=== PATIENT | male | born 1970 | race Caucasian/White ===

== ENCOUNTER 2021-03-09 08:41 | Outpatient (CLI) | payer SELFPAY ==
--- NOTE | 2021-03-09 09:00 | XRR_ITS ---
PROCEDURE INFORMATION: Exam: XR Abdomen Exam date and time: 03/09/2021 9:00 AM Age: 50 years old Clinical indication: Condition or disease; Kidney or ureter condition; Calculus (stone) in ureter; Prior surgery; Surgery type: Hernia, 40% of intestine removed; Patient HX: History--kidney stone follow up; Additional info: Ureterolithiasis TECHNIQUE: Imaging protocol: XR of the abdomen. Views: Frontal supine view of the abdomen. 1 View. COMPARISON: CR XR KUB [id number] 03/07/2019 9:32 AM FINDINGS: Gastrointestinal tract: Normal. No bowel dilation. Vasculature: Multiple phleboliths are present in the pelvis. No calcifications are seen in the projection of the kidney or ureters. There is a calcified gallstone in the right upper quadrant. Bones/joints: Unremarkable. XR/XR KUB [id number] IMPRESSION: 1. Cholelithiasis. 2. No renal calculi are seen.
== END 2021-03-09 08:42 | disposition home or self-care (01) ==
LOC: RAD 08:44
PROVIDERS: PCP Physician Assistant Medical; Visit Provider Urology
DX: N20.1 Calculus of ureter (principal); K80.20 Calculus of gallbladder without cholecystitis without obstruction
CPT/HCPCS: 74018

== ENCOUNTER 2024-05-02 15:14 | Emergency (ER) | payer OTHER, SELFPAY ==
[2024-05-02 16:10] VITALS: BP 166/131; PULSE 111; RESP 17; TEMP 36.7; O2SAT 97; BMI 29.8
--- NOTE | 2024-05-02 17:58 | USR_ITS ---
PROCEDURE INFORMATION: Exam: US Scrotum Exam date and time: 05/02/2024 6:19 PM Age: 53 years old Clinical indication: Patient HX: L groin pain TECHNIQUE: Imaging protocol: Real-time ultrasound of the scrotum and contents with color Doppler and image documentation. COMPARISON: No relevant prior studies available. FINDINGS: Right testicle: Measures 5.1 x 3.2 x 2.4 cm. No mass. Normal color Doppler and arterial waveforms. No torsion. Left testicle: Measures 4.5 x 3 x 2.4 cm. No mass. Normal color Doppler and arterial waveforms. No torsion. Epididymides: Normal. Scrotum/soft tissues: There are small bilateral hydroceles. US/US scrotum [id number] IMPRESSION: There are small bilateral hydroceles.
--- NOTE | 2024-05-02 18:01 | ED_ITS ---
HPI - Male Genitourinary 2 General: Chief complaint: Urogenital-Male Stated complaint: groin pain Time Seen by Provider: 05/02/24 17:07 Source: patient Mode of arrival: ambulatory Limitations: no limitations History of Present Illness: 53-year-old male states he has been havi ng pain in his left groin with some slight testicle pain has been going on for months. He states seem to be worse with movement states his pain is currently a 1 out of 10 he denies any vomiting denies any fevers denies any dysuria. Associated symptoms: Deny dysuria, nausea or vomiting Related Data Home Medications Medication Instructions Recorded Confirmed mecobalamin (vitamin B12) 5,000 mcg PO DAILY 03/09/21 03/09/21 mcg disintegrating tablet Allergies Allergy/AdvReac Type Severity Reaction Status Date / Time No Known Allergies Allergy Unverified 04/18/24 09:29 Review of Systems 2 Const: Denies: fever(s), chills, body aches or change in appetite ENMT: Denies: throat pain or dental pain Card: Denies: chest pain Resp: Denies: dyspnea GI: Denies: abdominal pain, nausea, vomiting or diarrhea : Reports: testicular pain; Denies: dysuria Musc: Denies: neck pain or back pain Skin/Breast: Denies: rash Neuro: Denies: headache(s) PFSH ED 2 PFSH: Medical History Solitary left kidney Atrophic almost no tissue on right Surgical History History of intestinal surgery Family History Grandfather Cancer Social History Smoking and tobacco/nicotine status: unknown if used tobacco/nicotine Alcohol intake: current Substance/Drug Use: current Marital status: Single Current occupational status: employed Physical Exam 2 Const: COMMON NORMALS: no acute distress, patient oriented x3 and healthy appearing HENMT: COMMON NORMALS: normocephalic and atraumatic HEAD & SCALP: n ormocephalic and atraumatic Eye: COMMON NORMALS: conjunctivae normal CONJUNCTIVA: Yes conjunctivae normal Neck/C-Spine: COMMON NORMALS: full ROM and supple Chest: COMMONS NORMALS: normal inspection of the chest Resp: COMMON NORMALS: normal respiratory effort Cardio: COMMON NORMALS: regular rate, regular rhythm and No murmurs present (Cardio) RATE: regular rate RHYTHM: regular rhythm GI: COMMON NORMALS: Normal to inspection, nondistended, normoactive bowel sounds present, Soft to palpation, non-tender and no masses PALPATION: Yes Soft to palpation : OTHER: Tenderness and left groin area no testicle tenderness no severe tenderness on exam no hernia noted Extremity: COMMON NORMALS: normal to inspection and full ROM Neuro: COMMON NORMALS: patient oriented x3, moves all extremities and no focal motor deficits Psych: COMMON NORMALS: mental status grossly normal, Normal thought process present and cooperative THOUGHT PROCESS: Normal thought process present Skin: COMMON NORMALS: no rashes or lesions noted and no wounds GENERAL SKIN EXAM: no rashes or lesions noted Course 2 Vital Signs: Vital signs: Vital Signs Temperature 98.1 F 05/02/24 16:10 Pulse Rate 89 05/02/24 18:17 Respiratory Rate 16 05/02/24 18:17 Blood Pressure 162/119 05/02/24 18:17 Pulse Oximetry 98 05/02/24 18:17 Oxygen Delivery Me thod Room Air 05/02/24 18:17 MDM - Male Medical Decision Making Patient presents here with groin pain is likely muscular in origin exam here is benign ultrasound blood work urinalysis is all normal patient stable for discharge follow-up PCP return if worsening Lab Data 05/02/24 18:07 05/02/24 18:07 Radiology Impressions Scrotum Ultrasound 05/02/24 17:58 IMPRESSION: There are small bilateral hydroceles. Laboratory Results WBC 7.15 10^3/uL (3.29-11.43) 05/02/24 18:07 RBC 4.23 10^6/uL (3.85-5.65) 05/02/24 18:07 Hgb 14.00 g/dL (11.27-16.99) 05/02/24 18:07 Hct 40.3 % (37-53) 05/02/24 18:07 MCV 95.3 fl (82-101) 05/02/24 18:07 MCH 33.1 pg (27-33) H 05/02/24 18:07 MCHC 34.7 g/dL (30-55) 05/02/24 18:07 RDW 13.6 % (12.1-15.1) 05/02/24 18:07 Plt Count 154 10^3/cmm (157-399) L 05/02/24 18:07 MPV 10.1 fL (7.4-10.4) 05/02/24 18:07 Neut % (Auto) 62.0 % 05/02/24 18:07 Lymph % (Auto) 30.3 % 05/02/24 18:07 [place] % (Auto) 4.5 % 05/02/24 18:07 Eos % (Auto) 2.1 % 05/02/24 18:07 Baso % (Auto) 0.8 % 05/02/24 18:07 Neut # (Auto) 4.43 10^3/uL (1.8-7.7) 05/02/24 18:07 Lymph # (Auto) 2.2 10^3/uL (0.8-4.8) 05/02/24 18:07 [place] # (Auto) 0.3 10^3/uL (0.2-0.9) 05/02/24 18:07 Eos # (Auto) 0.2 10^3/uL (0.0-0.8) 05/02/24 18:07 Baso # (Auto) 0.1 10^3/uL (0.0-0.1) 05/02/24 18:07 Nucleated RBC % (auto) 0 % 05/02/24 18:07 Nucleated RBCs # 0.0 /100WBC 05/02/24 18:07 Sodium 142 mmol/L (136-145) 05/02/24 18:07 Potassium 3.0 mmol/L (3.5-5.1) L 05/02/24 18:07 Chloride 103 mmol/L (98-107) 05/02/24 18:07 Carbon Dioxide 25 mmol/L (22-29) 05/02/24 18:07 Anion Gap 17.0 (5-19) 05/02/24 18:07 BUN 19 mg/dL (6-20) 05/02/24 18:07 Creatinine 1.7 mg/dL (0.7-1.2) H 05/02/24 18:07 GFR Calculation 42.4 mL/min (90-130) L 05/02/24 18:07 Glucose 150 mg/dL (65-115) H 05/02/24 18:07 Calculated Osmolality 299 mOsm/kg (285-295) H 05/02/24 18:07 Calcium 8.7 mg/dL (8.5-10.5) 05/02/24 18:07 Total Bilirubin 1.7 mg/dL (0.15-1.2) H 05/02/24 18:07 AST 21 U/L (0-40) 05/02/24 18:07 ALT 18 U/L (0-41) 05/02/24 18:07 Alkaline Phosphatase 42 U/L (40-130) 05/02/24 18:07 Total Protein 6.8 g/dL (6.6-8.7) 05/02/24 18:07 Albumin 4.5 g/dL (3.5-5.2) 05/02/24 18:07 Globulin 2.3 g/dL (1.3-4.6) 05/02/24 18:07 Urine Color Yellow (Yellow) 05/02/24 18:51 Urine Appearance Clear (CLEAR) 05/02/24 18:51 Urine pH 6.0 (5-7) 05/02/24 18:51 Ur Specific [place] 1.023 (1.005-1.030) 05/02/24 18:51 Urine Protein 3+ (Negative) A 05/02/24 18:51 Urine Glucose (UA) Negative (Normal) 05/02/24 18:51 Urine Ketones Negative (Negative) 05/02/24 18:51 Urine Blood Negative (Negative) 05/02/24 18:51 Urine Nitrate Negative (Negative) 05/02/24 18:51 Urine Bilirubin Negative (Negative) 05/02/24 18:51 Urine Urobilinogen 1.0 mg/dL (Negative) 05/02/24 18:51 Ur Leukocyte Esterase Negative (Negative) 05/02/24 18:51 Amorphous Sediment Not Reportable 05/02/24 18:51 All radiology interpretation(s) finalized by discharge Discharge Plan Discharge Patient Disposition: Home Clinical Impression: Left groin pain Condition: Stable Prescriptions: No Action mecobalamin (vitamin B12) 5,000 mcg tablet,disintegrating PO DAILY Rx Instructions: He takes 1/2 tablet daily Discharge Orders: Discharge ED (Routine); Ordered 05/02/24 Ordered By: Nigel Lafleur Discharge Diet: Advance as tolerated Discharge Activity: Resume usual activity Patient Instructions: Groin Pain (ED) Coding Level of Care Code ED Chief Security And Safety Officer for Mirna Lovell
[2024-05-02 18:16] LABS: Basophils # 0.1 10^3/uL (0.0-0.1); Basophils % 0.8 %; Eosinophils # 0.2 10^3/uL (0.0-0.8); Eosinophils % 2.1 %; Hematocrit 40.3 % (37-53); Lymphocytes # 2.2 10^3/uL (0.8-4.8); Lymphocytes % 30.3 %; Mean Corpuscular HGB Conc 34.7 g/dL (30-55); Mean Corpuscular Hemoglobin 33.1 pg (27-33); Mean Corpuscular Volume 95.3 fl (82-101); Mean Platelet Volume 10.1 fL (7.4-10.4); Monocytes # 0.3 10^3/uL (0.2-0.9); Monocytes % 4.5 %; Neutrophils # 4.43 10^3/uL (1.8-7.7); Nucleated Red Blood Cells % 0 %; Platelet Count 154 10^3/cmm (157-399); Red Blood Count 4.23 10^6/uL (3.85-5.65); Red Cell Distribution Width 13.6 % (12.1-15.1); White Blood Count 7.15 10^3/uL (3.29-11.43)
[2024-05-02 18:17] VITALS: BP 162/119; PULSE 89; RESP 16; O2SAT 98
[2024-05-02 18:29] LABS: Alanine Aminotransferase 18 U/L (0-41); Albumin Level 4.5 g/dL (3.5-5.2); Alkaline Phosphatase 42 U/L (40-130); Aspartate Amino Transferase 21 U/L (0-40); Blood Urea Nitrogen 19 mg/dL (6-20); Calcium 8.7 mg/dL (8.5-10.5); Carbon Dioxide 25 mmol/L (22-29); Chloride 103 mmol/L (98-107); Creatinine Clr Calc Pharmacy 61.4658; Globulin 2.3 g/dL (1.3-4.6); Glomerular Filtration Rate 42.4 mL/min (90-130); Glucose 150 mg/dL (65-115); Osmolality Calculated 299 mOsm/kg (285-295); Sodium 142 mmol/L (136-145); Total Bilirubin 1.7 mg/dL (0.15-1.2); Total Protein 6.8 g/dL (6.6-8.7)
[2024-05-02] MEDS: metoprolol tartrate 25 mg Tablet PO (18:49)
[2024-05-02 19:02] LABS: Charge for UA Resulting for Rev
[2024-05-02 19:13] LABS: Bilirubin Urine Negative (Negative); Blood Urine Negative (Negative); Glucose Urine UA Negative (Normal); Ketones Urine Negative (Negative); Leukocyte Esterase Urine Negative (Negative); Nitrate Urine Negative (Negative); Protein Urine 3+ (Negative); Specific Gravity, Urine 1.023 (1.005-1.030); Urine Appearance Clear (CLEAR); Urine Color Yellow (Yellow)
[2024-05-02 19:57] LABS: UA Manual Slide Review YES; UA Slide Review UA Slide Review Perf
[2024-05-02 20:00] VITALS: BP 177/117; PULSE 100; O2SAT 96
[2024-05-02 20:02] LABS: Add Urine Culture? No; Fine Granular Casts Urine 0-4 /lpf; Mucus Urine TRACE /hpf; Squamous Epithelial Cell Urine 0-4 /hpf (0-5); WBC Urine RARE /hpf (0-5)
== END 2024-05-02 20:02 | disposition home or self-care (01) ==
PROVIDERS: Emergency Provider Emergency Medicine
DX: R10.32 Left lower quadrant pain (principal)
CPT/HCPCS: 36415; 76870; 80053; 81003; 81015; 85025; 99284

== ENCOUNTER → 2024-05-23 14:49 | Outpatient (BNVA) | payer OTHER, SELFPAY | PROVIDERS: PCP Family Medicine; Visit Provider Family Medicine | DX: I10 Essential (primary) hypertension (principal); Q60.0 Renal agenesis, unilateral; R79.89 Other specified abnormal findings of blood chemistry; R73.9 Hyperglycemia, unspecified; E87.6 Hypokalemia | CPT/HCPCS: 80048; 82306; 83036 ==

== ENCOUNTER → 2024-05-31 11:16 | Outpatient (BNVA) | payer OTHER, SELFPAY | PROVIDERS: PCP Family Medicine; Visit Provider Family Medicine | DX: I10 Essential (primary) hypertension (principal); R79.89 Other specified abnormal findings of blood chemistry; E87.6 Hypokalemia | CPT/HCPCS: 80048 ==

== ENCOUNTER → 2024-06-06 09:30 | Outpatient (BNVA) | payer OTHER, SELFPAY | PROVIDERS: PCP Family Medicine; Visit Provider Family Medicine | DX: I10 Essential (primary) hypertension (principal); R79.89 Other specified abnormal findings of blood chemistry | CPT/HCPCS: 80048 ==

== ENCOUNTER → 2024-07-08 12:03 | Outpatient (BNVA) | payer OTHER, SELFPAY | PROVIDERS: PCP Family Medicine; Visit Provider Registered Nurse Neonatal Intensive Care | DX: R50.9 Fever, unspecified (principal) | CPT/HCPCS: 87880 ==

== ENCOUNTER 2024-07-18 09:07 | Inpatient (IN) | payer OTHER, SELFPAY ==
[2024-07-18] VITALS (36 sets, daily range): BP systolic 77–129; BP diastolic 50–72; PULSE 63–121; RESP 13–36; TEMP 36.5–37.1; O2SAT 96–100; BMI 31.1
--- NOTE | 2024-07-18 09:21 | CT_ITS ---
WS: [id number] CT ABDOMEN PELVIS TECHNIQUE: Noncontrast CT of the abdomen and pelvis with coronal and sagittal reformatted images. CLINICAL INFORMATION: rectal bleeding COMPARISON: CT 2017 DLP: 830.[address] scans at [facility] use at least one of these dose optimization techniques: automated e xposure control; mA and/or kV adjustment per patient size (includes targeted exams where dose is matc hed to clinical indication); or iterative reconstruction. FINDINGS: Large laminated gallstone in the gallbladder measuring 3.1 cm. Gallbladder is contracted. No perichol ecystic fluid. Small esophageal hiatal hernia. Adrenal glands are normal. Normal caliber abdominal ao rta. Mild aortic calcification. Prior RIGHT nephrectomy. No hydronephrosis in the LEFT kidney. LEFT u reter is decompressed. A few tiny nonobstructing LEFT calyceal tip calculi. Tree-in-bud opacities in the lung bases likely inflammatory. Noncontrast pancreas appears normal. Submucosal fatty infiltration in the sigmoid and rectum nonspecific but can be seen with inflammatory bowel disease. Serpiginous area of increased attenuation in the dorsal RIGHT lateral rectosigmoid russo spicious for blood products and/or calcification. Recommend further evaluation with sigmoidoscopy to exclude underlying mass. Some distention of the rectosigmoid in this area with intraluminal products. No evidence of high-grade small or large bowel obstruction. No free fluid in the abdomen or pelvis. F at-containing LEFT inguinal hernia. CT/CT kidney stone [id number] IMPRESSION: 1. Large laminated gallstone in the gallbladder measuring 3.1 cm gallbladder i s contracted. No pericholecystic fluid. 2. Diffuse fatty wall deposition involving the sigmoid colon and rectum. Small serpiginous area of increased attenuation in the dorsal RIGHT lateral rectosig moid suspicious for blood products. In addition there may be some calcification in this area. Recommend further evaluation with sigmoidoscopy to exclude under lying calcified or ulcerated mass. 3. Prior RIGHT nephrectomy. 4. Tiny nonobstructing LEFT calyceal tip calculi. No hydronephrosis in the LEF T kidney. Notified Nigel Lafleur MD at 07/18/2024 10:42 AM.
--- NOTE | 2024-07-18 09:21 | XR_ITS ---
WS: [id number] Exam: XR chest 1V portable [id number] Date/Time of Exam: 07/18/2024 9:28 AM Reason For Exam: weakness Comparison 10/03/2016. Lungs are fully inflated and clear. Chronic interstitial changes of the lung bases. Normal cardiomedi astinal silhouette. No pleural effusion. Bony structures are intact. XR/XR chest 1V portable [id number] IMPRESSION: 1. No acute cardiopulmonary process.
--- NOTE | 2024-07-18 09:22 | ECG_ITS ---
[facility] Test Date: 2024-07-18 Pat Name: Jazmine William Department: Room: Gender: Male Travel Counselor: : 1970 Requested By: Nigel Lafleur Order Number: [id number] Opal MD: Matias Arias M.D. Measurements Intervals [place] Rate: 100 P: 56 MT: 154 QRS: 34 QRSD: 98 T: -11 QT: 342 QTc: 441 Interpretive Statements SINUS TACHYCARDIA WITH OCCASIONAL SUPRAVENTRICULAR PREMATURE COMPLEXES NONSPECIFIC T-WAVE ABNORMALITY Compared to ECG 10/04/2016 04:49:40 T-wave abnormality now present Sinus rhythm no longer present Electronically Signed On 07-20-2024 10:30:29 DYE AUTOMATION OPERATOR by Matias Arias M.D. [email or web address]
--- NOTE | 2024-07-18 09:29 | ED_ITS ---
HPI - GI Bleed 2 General: Chief complaint: GI Bleed Stated complaint: blood in urine and stools Time Seen by Provider: 07/18/24 09:14 Source: patient Mode of arrival: ambulatory Limitations: no limitations History of Present Illness: 53-year-old male states that he has been having bloody stools over the last week he states it has been bright red at times and also dark. He states that he has had increasing fatigue patient is hypotensive here. He denies any vomiting blood he had some slight abdominal cramping denies any severe pain he states he was diagnosed with COVID 2 weeks ago as well but denies any dyspnea or cough or fever currently Associated symptoms: Denies abdominal pain, chills, fever(s), headache(s), nausea, rash or vomiting Related Data Home Medications Medication Instructions Recorded Confirmed mecobalamin (vitamin B12) 5,000 2,500 mcg PO DAILY 03/09/21 07/18/24 mcg disintegrating tablet amlodipine 10 mg tablet 10 mg PO DAILY 07/18/24 07/18/24 Previous Rx's Medication Instructions Recorded cholecalciferol (vitamin D3) 50 50 mcg PO DAILY #90 caps 05/24/24 mcg (2,000 unit) capsule lisinopril 20 mg tablet 20 mg PO DAILY #90 tabs 06/20/24 metoprolol tartrate 25 mg tablet 25 mg PO BID #180 tabs 06/25/24 potassium chloride 20 mEq 20 meq PO DAILY #90 tabs 07/01/24 tablet,extended release(part/cryst) (Klor-Con M) Allergies Allergy/AdvReac Type Severity Reaction Status Date / Time No Known Allergies Allergy Verified 07/18/24 09:24 Review of Systems 2 Const: Reports: fatigue; Denies: fever(s), chills, body aches or change in appetite Eyes: Denies: blurry vision or eye discomfort ENMT: Denies: throat pain or dental pain Card: Denies: chest pain Resp: Denies: dyspnea GI: Reports: hematochezia; Denies: abdominal pain, nausea, vomiting or diarrhea Musc: Denies: neck pain or back pain Skin/Breast: Denies: rash Neuro: Denies: headache(s) PFSH ED 2 PFSH: Medical History (Updated 07/18/24 @ 11:22 by Nigel Lafleur MD) Chronic kidney disease (CKD) Hypokalemia Abnormal blood creatinine level Hypertension Asymptomatic cholelithiasis History of nephrolithiasis Solitary left kidney Atrophic almost no tissue on right Surgical History (Updated 05/23/24 @ 14:55 by Bisi Flynn MD) Hx of colonoscopy 3.31.17--normal History of ankle surgery Right History of intestinal surgery 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 Physical Exam 2 Const: COMMON NORMALS: patient oriented x3 HENMT: COMMON NORMALS: normocephalic and atraumatic HEAD & SCALP: n ormocephalic and atraumatic Eye: COMMON NORMALS: Equal, round and reactive pupils present and EOMs intact bilaterally PUPIL: Yes Equal, round and reactive pupils present Neck/C-Spine: COMMON NORMALS: full ROM and supple Chest: COMMONS NORMALS: normal inspection of the chest and normal palpation of entire chest wall Resp: COMMON NORMALS: normal respiratory effort, No retractions, No use of accessory muscles and clear to auscultation bilaterally AUSCULTATION: clear to auscultation bilaterally Cardio: COMMON NORMALS: regular rate, regular rhythm and No murmurs present (Cardio) RATE: regular rate RHYTHM: regular rhythm GI: COMMON NORMALS: Normal to inspection, nondistended, normoactive bowel sounds present, Soft to palpation, non-tender and no masses PALPATION: Yes Soft to palpation OTHER: hemoccult positive stool no larges amount of blood Extremity: COMMON NORMALS: normal to inspection and full ROM Neuro: COMMON NORMALS: patient oriented x3, moves all extremities and no focal motor deficits Psych: COMMON NORMALS: mental status grossly normal, Normal thought process present and cooperative THOUGHT PROCESS: Normal thought process present Skin: COMMON NORMALS: no rashes or lesions noted and no wounds GENERAL SKIN EXAM: no rashes or lesions noted Course 2 Vital Signs: Vital signs: Vital Signs Temperature 97.7 F 07/18/24 09:19 Pulse Rate 118 H 07/18/24 11:19 Blood Pressure 103/62 07/18/24 11:19 Pulse Oximetry 100 07/18/24 11:19 Oxygen Delivery Me thod Room Air 07/18/24 10:10 MDM - GI Bleed Medical Decision Making Patient presents with malaise was found to be in renal failure did start him on a bicarb drip he is acidotic as well. Did a rectal exam that showed brown stool was Hemoccult positive no signs of any major bleeding hemoglobin here is normal his lactate is normal. Also consulted nephrology will admit to the ICU Medical Records I reviewed the patient's medical records. Lab Data I reviewed the patient's lab results. 07/18/24 09:26 07/18/24 09:26 Radiology Impressions Abdomen/Pelvis CT 07/18/24 09:21 IMPRESSION: 1. Large laminated gallstone in the gallbladder measuring 3.1 cm gallbladder is contracted. No pericholecystic fluid. 2. Diffuse fatty wall deposition involving the sigmoid colon and rectum. Small serpiginous area of increased attenuation in the dorsal RIGHT lateral rectosigmoid suspicious for blood products. In addition there may be some calcification in this area. Recommend further evaluation with sigmoidoscopy to exclude underlying calcified or ulcerated mass. 3. Prior RIGHT nephrectomy. 4. Tiny nonobstructing LEFT calyceal tip calculi. No hydronephrosis in the LEFT kidney. Notified Nigel Lafleur MD at 07/18/2024 10:42 AM. Chest X-Ray 07/18/24 09:21 IMPRESSION: 1. No acute cardiopulmonary process. Laboratory Results WBC 12.16 10^3/uL (3.29-11.43) H 07/18/24 09:26 RBC 4.23 10^6/uL (3.85-5.65) 07/18/24 09:26 Hgb 13.90 g/dL (11.27-16.99) 07/18/24 09: Hct 42.5 % (37-53) 07/18/24 09: MCV 100.5 fl (82-101) 07/18/24 09: MCH 32.9 pg (27-33) 07/18/24 09: MCHC 32.7 g/dL (30-55) 07/18/24 09: RDW 13.9 % (12.1-15.1) 07/18/24 09: Plt Count 150 10^3/cmm (157-399) L 07/18/24 09: MPV 11.2 fL (7.4-10.4) H 07/18/24 09: Neut % (Auto) 85.5 % 07/18/24 09: Lymph % (Auto) 10.1 % 07/18/24 09: [place] % (Auto) 3.5 % 07/18/24 09: Eos % (Auto) 0.2 % 07/18/24 09: Baso % (Auto) 0.2 % 07/18/24 09: Neut # (Auto) 10.39 10^3/uL (1.8-7.7) H 07/18/24 09: Lymph # (Auto) 1.2 10^3/uL (0.8-4.8) 07/18/24 09: [place] # (Auto) 0.4 10^3/uL (0.2-0.9) 07/18/24 09: Eos # (Auto) 0.0 10^3/uL (0.0-0.8) 07/18/24 09: Baso # (Auto) 0.0 10^3/uL (0.0-0.1) 07/18/24 09: Nucleated RBC % (auto) 0 % 07/18/24 09: Nucleated RBCs # 0.0 /100WBC 07/18/24 09: PT 15.10 SECONDS (12.1-14.9) H 07/18/24 09: INR 1.16 (0.8-1.2) 07/18/24 09: Specimen Type Arterial 07/18/24 10:41 Sample Site Radial, right 07/18/24 10:41 ABG pH 7.03 (7.35-7.45) L* 07/18/24 10:41 ABG pCO2 15.8 mmHg (35-45) L* 07/18/24 10:41 ABG pO2 123.0 mmHg (80.0-100.0) H 07/18/24 10:41 ABG PO2/FiO2 Ratio 585 07/18/24 10:41 ABG HCO3 4.2 mmol/L (22-26) L 07/18/24 10:41 ABG Base Excess -24.8 mmol/L (-2.0-2.0) L 07/18/24 10:41 Scooter Test Pos 07/18/24 10:41 Hematocrit 36.7 % (42-52) L 07/18/24 10:41 O2 Delivery Device Room air 07/18/24 10:41 FiO2 21.0 % 07/18/24 10:41 Horse Farm Manager ID Mary 07/18/24 10:41 Blood Gas Notified Time 1110 07/18/24 10:41 Sodium 139 mmol/L (136-145) 07/18/24 09:26 Potassium 4.5 mmol/L (3.5-5.1) 07/18/24 09:26 Chloride 106 mmol/L (98-107) 07/18/24 09:26 Carbon Dioxide 5 mmol/L (22-29) L* 07/18/24 09:26 Anion Gap 32.5 (5-19) H 07/18/24 09:26 BUN 137 mg/dL (6-20) H* D 07/18/24 09:26 Creatinine 11.8 mg/dL (0.7-1.2) H* 07/18/24 09:26 GFR Calculation 4.5 mL/min (90-130) L 07/18/24 09:26 Glucose 139 mg/dL (65-115) H 07/18/24 09:26 Calculated Osmolality 335 mOsm/kg (285-295) H 07/18/24 09:26 Lactic Acid 1.3 mmol/L (0.5-2.2) 07/18/24 09:26 Calcium 8.4 mg/dL (8.5-10.5) L 07/18/24 09:26 Total Bilirubin 1.0 mg/dL (0.15-1.2) 07/18/24 09:26 AST 8 U/L (0-40) 07/18/24 09:26 ALT 9 U/L (0-41) 07/18/24 09: Alkaline Phosphatase 49 U/L (40-130) 07/18/24 09: Total Protein 7.5 g/dL (6.6-8.7) 07/18/24 09: Albumin 4.4 g/dL (3.5-5.2) 07/18/24 09: Globulin 3.1 g/dL (1.3-4.6) 07/18/24 09: Lipase 384 U/L (13-60) H 07/18/24 09:26 Urine Color Yellow (Yellow) 07/18/24 10:26 Urine Appearance Clear (CLEAR) 07/18/24 10: Urine pH 5.0 (5-7) 07/18/24 10:26 Ur Specific [place] 1.021 (1.005-1.030) 07/18/24 10:26 Urine Protein 2+ (Negative) A 07/18/24 10: Urine Glucose (UA) Negative (Normal) 07/18/24 10:26 Urine Ketones Trace (Negative) 07/18/24 10:26 Urine Blood 2+ (Negative) A 07/18/24 10:26 Urine Nitrate Negative (Negative) 07/18/24 10:26 Urine Bilirubin Negative (Negative) 07/18/24 10:26 Urine Urobilinogen 1.0 mg/dL (Negative) 07/18/24 10:26 Ur Leukocyte Esterase Negative (Negative) 07/18/24 10:26 Urine RBC 11-20 /hpf (0-2) H 07/18/24 10:26 Urine WBC 0-5 /hpf (0-5) 07/18/24 10:26 Ur Squamous Epith Cells 0-5 /hpf (0-5) 07/18/24 10:26 Amorphous Sediment Not Reportable 07/18/24 10:26 Urine Bacteria None seen /hpf (NONE) 07/18/24 10: Hyaline Casts 15.71 /lpf 07/18/24 10:26 Blood Type A Positive 07/18/24 09:34 Rho(D) Type Rh positive 07/18/24 09:34 Antibody Screen Negative 07/18/24 09:34 All radiology interpretation(s) finalized by discharge EKG Data EKG 1: I personally reviewed and interpreted this EKG as follows: EKG interpretation date: 07/18/24 EKG interpretation time: 09:42 Interpretation: sinus tach hr [address] or t wave abnormalities qrs 98 qtc 399 Critical Care Time 2 Critical Care Time: Critical Care Time: Yes Total Critical Care Time: 45 Attestation: The high probability of a clinically significant, sudden or life threatening deterioration of the patient's renal system(s) required my full and direct attention, intervention and personal management. The critical care time is as shown. This time is in addition to time spent performing any reported procedures but includes the following: [x] Data and vital sign review and interpretation [x] Patient assessment, examination and intervention [x] Documentation [x] Medication orders and management Discharge Plan Discharge Patient Disposition: Admitted As Inpatient Clinical Impression: Acute renal failure Condition: Stable Prescriptions: No Action mecobalamin (vitamin B12) 5,000 mcg tablet,disintegrating 2,500 mcg PO DAILY cholecalciferol (vitamin D3) 50 mcg (2,000 unit) capsule 50 mcg PO DAILY Qty: 90 3RF lisinopril 20 mg tablet 20 mg PO DAILY Qty: 90 0RF metoprolol tartrate 25 mg tablet 25 mg PO BID Qty: 180 0RF potassium chloride [Klor-Con M20] 20 mEq tablet,ER particles/crystals 20 meq PO DAILY Qty: 90 0RF amlodipine 10 mg tablet 10 mg PO DAILY Referrals: Bisi Flynn MD [Primary Care Provider] - Coding Level of Care Code ED Community Organization Aide for Chg L[facility]
[2024-07-18] MEDS: sodium chloride 0.9% 1,000 ML 999 ML IV ×2 (09:30→09:44)
[2024-07-18 09:38] LABS: Basophils % 0.2 %; Eosinophils % 0.2 %; Hematocrit 42.5 % (37-53); Lymphocytes # 1.2 10^3/uL (0.8-4.8); Lymphocytes % 10.1 %; Mean Corpuscular HGB Conc 32.7 g/dL (30-55); Mean Corpuscular Hemoglobin 32.9 pg (27-33); Mean Corpuscular Volume 100.5 fl (82-101); Mean Platelet Volume 11.2 fL (7.4-10.4); Monocytes # 0.4 10^3/uL (0.2-0.9); Monocytes % 3.5 %; Neutrophils # 10.39 10^3/uL (1.8-7.7); Neutrophils % 85.5 %; Nucleated Red Blood Cells % 0 %; Platelet Count 150 10^3/cmm (157-399); Red Blood Count 4.23 10^6/uL (3.85-5.65); Red Cell Distribution Width 13.9 % (12.1-15.1); White Blood Count 12.16 10^3/uL (3.29-11.43)
[2024-07-18 09:58] LABS: INR 1.16 (0.8-1.2)
[2024-07-18 09:59] LABS: Lactic Sepsis W/Reflex 1.3 mmol/L (0.5-2.2)
[2024-07-18 10:00] LABS: Alanine Aminotransferase 9 U/L (0-41); Albumin Level 4.4 g/dL (3.5-5.2); Alkaline Phosphatase 49 U/L (40-130); Chloride 106 mmol/L (98-107); Potassium 4.5 mmol/L (3.5-5.1); Sodium 139 mmol/L (136-145)
[2024-07-18 10:13] LABS: Anion Gap 32.5 (5-19); Aspartate Amino Transferase 8 U/L (0-40); Calcium 8.4 mg/dL (8.5-10.5); Globulin 3.1 g/dL (1.3-4.6); Glomerular Filtration Rate 4.5 mL/min (90-130); Glucose 139 mg/dL (65-115); Total Protein 7.5 g/dL (6.6-8.7)
[2024-07-18 10:35] LABS: Bilirubin Urine Negative (Negative); Blood Urine 2+ (Negative); Glucose Urine UA Negative (Normal); Ketones Urine Trace (Negative); Leukocyte Esterase Urine Negative (Negative); Nitrate Urine Negative (Negative); Protein Urine 2+ (Negative); Specific Gravity, Urine 1.021 (1.005-1.030); Urine Appearance Clear (CLEAR); Urine Color Yellow (Yellow)
[2024-07-18 10:36] LABS: Blood Urea Nitrogen 137 mg/dL (6-20); Carbon Dioxide 5 mmol/L (22-29); Osmolality Calculated 335 mOsm/kg (285-295)
[2024-07-18 10:37] LABS: Lipase 384 U/L (13-60)
[2024-07-18 10:38] LABS: Add Urine Microscopic? YES; Bacteria Urine None Seen /hpf; Hyaline Casts Urine 15.71 /lpf; Squamous Epithelial Cell Urine 0-5 /hpf (0-5); WBC Urine 0-5 /hpf (0-5)
[2024-07-18 10:55] LABS: Add Urine Culture? Yes; UA Slide Review UA Slide Review Perf
[2024-07-18 11:11] LABS: Arterial Blood Gas Hematocrit 36.7 % (42-52); Base Excess ABG -24.8 mmol/L (-2.0-2.0); Blood Gas Allen Test Pos; Blood Gas Operator Identificat WALCI; Blood Gas Sample Site Radial, right; Blood Gas Sample Type Arterial; HCO3 ABG 4.2 mmol/L (22-26); Oxygen Device ROOM AIR; PO2 FiO2 Ratio Arterial Blood 585
[2024-07-18 11:15] LABS: ABG PCO2 15.8 mmHg (35-45); ABG PH Result 7.03 (7.35-7.45); Blood Gas CCRB Time 1110
--- NOTE | 2024-07-18 11:38 | P.HP_ITS ---
Documented by User: Mc Arevalo 07/18/24 12:40 Providers/Chief Complaint 2 Admitting Physician: Jim Guzmán MD Primary Care Provider: Bisi Flynn MD Chief Complaint: blood in urine and stools History of Present Illness Jazmine William is a 53 y.o. male with painful bloody stools and persistent fatigue. The fatigue has been going on for several weeks but the painful bloody stools he noticed more recently. These painful stools have made him increasingly hesitant to eat to avoid the pain of bowel movements. He has dealt with diarrhea since childhood and recalls undergoing surgery during childhood when they removed a portion of his intestine. He reports a recent bout of COVID that he believes has since resolved. He learned in 2017 that he only has one kidney. Denies any recent travel. Review of Systems 2 General: Reports: 10 or more systems reviewed and unremarkable except in HPI and below Const: Reports: fever(s), chills, change in appetite and fatigue Eyes: Reports: change in vision ENMT: Reports: dry mouth; Denies: odynophagia Card: Denies: edema or swelling of feet/ankles Resp: Denies: dyspnea, productive cough or non-productive cough GI: Reports: nausea, diarrhea, pain on defecation, rectal pain and hematochezia; Denies: vomiting : Reports: oliguria Neuro: Denies: Slurred speech present Psych: Reports: anxiety and change in appetite Endo: Reports: tired all the time Medications/Allergies Home Medications Medication Instructions Recorded Confirmed Last Taken Type mecobalamin (vitamin B12) 5,000 2,500 mcg PO DAILY 03/09/21 07/18/24 07/17/24 History mcg disintegrating tablet cholecalciferol (vitamin D3) 50 50 mcg PO DAILY #90 caps 05/24/24 07/18/24 07/17/24 Rx mcg (2,000 unit) capsule lisinopril 20 mg tablet 20 mg PO DAILY #90 tabs 06/20/24 07/18/24 07/17/24 Rx metoprolol tartrate 25 mg tablet 25 mg PO BID #180 tabs 06/25/24 07/18/24 07/17/24 Rx potassium chloride 20 mEq 20 meq PO DAILY #90 tabs 07/01/24 07/18/24 07/17/24 Rx tablet,extended release(part/cryst) (Klor-Con M) amlodipine 10 mg tablet 10 mg PO DAILY 07/18/24 07/18/24 07/17/24 History Allergies Allergy/AdvReac Type Severity Reaction Status Date / Time No Known Allergies Allergy Verified 07/18/24 09:24 PFSH Acute 2 PFSH: Medical History Chronic kidney disease (CKD) Hypokalemia Abnormal blood creatinine level Hypertension Asymptomatic cholelithiasis History of nephrolithiasis Solitary left kidney Atrophic almost no tissue on right Surgical History Hx of colonoscopy 3.31.17--normal History of ankle surgery Right History of intestinal surgery 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 Alert and oriented. HEENT: Normocephalic, atraumatic. Oropharynx clear. Slight rosacea. Cardiovascular: RRR. No murmurs. Respiratory: Clear to auscultation bilaterally. Abdomen: Old surgical scar noted. Soft, nondistended. : Phallus and scrotum grossly normal. Hc catheter in place. Rectum: No visible blood. Diffuse irritation of perirectal skin. Neuro: No obvious focal deficits. Extremities: No cyanosis or edema. 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 male with painful bloody stools and persistent fatigue. The fatigue has been going on for several weeks but the painful bloody stools he noticed more recently. These painful stools have made him increasingly hesitant to eat to avoid the pain of bowel movements. He believes this stemmed for after he had COVID, around the of this month or so. I do not see a positive test, in his record, but there is a positive rapid strep. He has dealt with diarrhea since childhood and recalls undergoing surgery during childhood when they removed a portion of his intestine. He learned in 2017 that he only has one kidney. Denies any recent travel. Reports the blood in his stool, is bright red. He reports some fever at home, but only subjective. He has been anorexic not wanting to eat but is still been drinking some liquids. He had also recently readded multiple blood pressure medicines. I believe that since May 23 he has been initiated on Norvasc, amlodipine and metoprolol. Medications/Allergies Home Medications Medication Instructions Recorded Confirmed Last Taken Type mecobalamin (vitamin B12) 5,000 2,500 mcg PO DAILY 03/09/21 07/18/24 07/17/24 History mcg disintegrating tablet cholecalciferol (vitamin D3) 50 50 mcg PO DAILY #90 caps 05/24/24 07/18/24 07/17/24 Rx mcg (2,000 unit) capsule lisinopril 20 mg tablet 20 mg PO DAILY #90 tabs 06/20/24 07/18/24 07/17/24 Rx metoprolol tartrate 25 mg tablet 25 mg PO BID #180 tabs 06/25/24 07/18/24 07/17/24 Rx potassium chloride 20 mEq 20 meq PO DAILY #90 tabs 07/01/24 07/18/24 07/17/24 Rx tablet,extended release(part/cryst) (Klor-Con M) amlodipine 10 mg tablet 10 mg PO DAILY 07/18/24 07/18/24 07/17/24 History Allergies Allergy/AdvReac Type Severity Reaction Status Date / Time No Known Allergies Allergy Verified 07/18/24 09:24 PFSH Acute 2 PFSH: Medical History Chronic kidney disease (CKD) Hypokalemia Abnormal blood creatinine level Hypertension Asymptomatic cholelithiasis History of nephrolithiasis Solitary left kidney Atrophic almost no tissue on right Surgical History Hx of colonoscopy 3.31.17--normal History of ankle surgery Right History of intestinal surgery 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 Possibly some calcification. Will need endoscopy to review. Only 1 kidney. Small nonobstructive left calyceal calculi left kidney Urine culture has been obtained EKG demonstrates sinus rhythm with occasional premature atrial contraction, normal axis, nonspecific ST-T wave changes. A&P Assessment and plan (1) Acute renal failure: Severe acute renal failure demonstrated by markedly elevated creatinine, pronounced metabolic acidosis, pronounced secondary compensatory respiratory alkalosis. Differential diagnosis is broad. This could include dehydration, hypotension with blood pressure medication, infection, poststreptococcal, HUS Continue IV fluid resuscitation in the form of a bicarbonate drip. Currently getting a bolus, and then will get 125 cc an hour of D5W with 100 mill equivalents of bicarbonate per liter BP is improving significantly, continue to monitor Nephrology consultation Ch in place, has produced clear yellow urine, continue to monitor volume Hold all blood pressure medications, including KAVEH inhibitors Patient denies any history of anti-inflammatory use Avoid renal toxic medication Secondary to past history of positive strep we will do a throat culture, and initiate Zosyn currently. Zosyn is also being used secondary to GI abnormalities. Repeat BMP in 3 hours (2) Acidosis: (3) Hematochezia: Been having stools with visible blood Significant pain with bowel movements Dilaudid PRN for pain Consider colonoscopy, after patient is stabilized Zosyn IV Stool culture, C. difficile toxin (4) Hypotension: Improved with IV fluids Fairly profound on arrival Hold all antihypertensives. (5) History of streptococcal pharyngitis: Plan Mild thrombocytopenia that appears to be chronic Full Code DVT prophylaxis: Unfractionated heparin Protonix for GI prophylaxis Attestations 2 Medical Necessity Statement*: Will need greater than 2 midnight stay for evaluation and treatment of severe acute kidney failure. Critical Care Time: The high probability of a clinically significant, sudden or life threatening deterioration of the patient's [renal, gastrointestinal, vascular] system(s) required my full and direct attention, intervention and personal management. The critical care time is as shown. This time is in addition to time spent performing any reported procedures but includes the following: [x] Data and vital sign review and interpretation [x] Patient assessment, examination and intervention [x] Documentation [x] Medication orders and management Critical Care Time (min): 68 Coding Level of Care Code Critical Care >/= 30 minutes Critical care time (in minutes): 68 The high probability of a clinically significant, sudden or life threatening deterioration, as referenced in this documentation, required my full and direct attention, intervention and personal management. The critical care time shown is in addition to time spent performing any reported separately billable procedures and includes the following: [x] Data and vital sign review and interpretation [x ] Patient assessment, examination and intervention [x] Medication orders and management [x] Patient/Family updates as able [x] Care Coordination and Documentation. Diagnoses Acute renal failure N17.9 Acidosis E87.20 Hematochezia K92.1 Hypotension I95.9 History of streptococcal pharyngitis Z87.09
[2024-07-18] MEDS: cefTRIAXone 1,000 mg SDV 1000 MG IVP (11:44)
--- NOTE | 2024-07-18 12:05 | PC.NURSE ---
BICARB TO RUN AT 200 ML/HR FOR 2 HOURS AND THEN BACK TO 125 ML/HR PER JAEL.
--- NOTE | 2024-07-18 13:36 | PM.CONSULT ---
Providers/Reason For Consult Consulting Physician/Specialty*: kommana/nephrology Reason for Consult*: JOSESITO Attending Physician: Jim Guzmán MD Primary Care Provider: Bisi Flynn MD History of Present Illness History of Present Illness Jazmine Wililam is a 53 year old male patient is a 53-year-old male with past medical history significant for hypertension who presented to the hospital due to blood in the stool generalized weakness and fatigue. Patient reports that he has been weak for the last few weeks was recently tested for COVID about a week ago has nausea and decreased p.o. intake has diarrhea and also noticed blood in the stool. Also reports that he has solitary kidney-congenital. Also has chronic diarrhea which has been worse now. In the emergency department he was noted to be tachycardic, lab data significant for elevated white count of 12,000, severe metabolic acidosis with a bicarbonate of 5 has BUN of 37 and creatinine of 11.8. Review of Systems Narrative: negative Medications/Allergies Home Medications Medication Instructions Recorded Confirmed Last Taken Type mecobalamin (vitamin B12) 5,000 2,500 mcg PO DAILY 03/09/21 07/18/24 07/17/24 History mcg disintegrating tablet cholecalciferol (vitamin D3) 50 50 mcg PO DAILY #90 caps 05/24/24 07/18/24 07/17/24 Rx mcg (2,000 unit) capsule lisinopril 20 mg tablet 20 mg PO DAILY #90 tabs 06/20/24 07/18/24 07/17/24 Rx metoprolol tartrate 25 mg tablet 25 mg PO BID #180 tabs 06/25/24 07/18/24 07/17/24 Rx potassium chloride 20 mEq 20 meq PO DAILY #90 tabs 07/01/24 07/18/24 07/17/24 Rx tablet,extended release(part/cryst) (Klor-Con M) amlodipine 10 mg tablet 10 mg PO DAILY 07/18/24 07/18/24 07/17/24 History Allergies Allergy/AdvReac Type Severity Reaction Status Date / Time No Known Allergies Allergy Verified 07/18/24 09:24 Current Medications Generic Name Dose Route Start Last Admin Trade Name Freq PRN Reason Stop Dose Admin Sodium Bicarbonate 100 meq/ 1,000 mls @ 125 mls/hr 07/18/24 11:00 07/18/24 12:06 Dextrose IV 200 mls/hr .Q8H ROXANN Infusion PFSH Acute PFSH: Medical History Chronic kidney disease (CKD) Hypokalemia Abnormal blood creatinine level Hypertension Asymptomatic cholelithiasis History of nephrolithiasis Solitary left kidney Atrophic almost no tissue on right Surgical History Hx of colonoscopy 3.31.17--normal History of ankle surgery Right History of intestinal surgery 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 Lungs clear per report No pedal edema Urinary Catheter Management: Ch: Cath Placed During This Visit: yes Urinary Catheter Date of Insertion: 07/18/24 Urinary Catheter Time of Insertion: 11:17 Data 07/18/24 09:26 07/18/24 09:26 A&P Assessment and plan (1) Acute renal failure: 1. Acute on chronic kidney disease: Baseline creatinine seems to be in the mid 1 range about a month ago now has severe JOSESITO with severe metabolic acidosis-etiology likely prerenal in the setting of poor intake and possibly developed ATN -Currently on bicarbonate drip, awaiting repeat labs -Monitor labs and urine output closely and if no improvement will require dialysis-was likely temporary HD -Avoid nephrotoxins and IV contrast studies -Patient currently on room air 2. High anion gap metabolic acidosis: Due to diarrhea and JOSESITO, on bicarbonate drip, monitor repeat labs 3. History of hypertension holding meds due to borderline low blood pressures 4. History of GI bleed, 5. Recent streptococcal pharyngitis Consult Attestations Medical Necessity Statement: Per medicine team Coding Level of Care Code Acute Code for [facility] Diagnoses Acute renal failure N17.9
[2024-07-18] MEDS: heparin 5,000 unit/mL INJ 1 mL 5000 UNIT SUBCUT (13:41)
[2024-07-18] MEDS: citric acid-sodium citrate 30 mL UDC 60 ML PO (13:41)
[2024-07-18] MEDS: piperacillin-tazobactam 3.375 GM in sodium chloride 0.9% (plus) 50 ML IV (13:41)
[2024-07-18 15:32] LABS: Anion Gap 27.9 (5-19); Calcium 7.2 mg/dL (8.5-10.5); Chloride 109 mmol/L (98-107); Creatinine Clr Calc Pharmacy 10.6684; Glomerular Filtration Rate 5.5 mL/min (90-130); Glucose 120 mg/dL (65-115); Potassium 3.9 mmol/L (3.5-5.1); Sodium 140 mmol/L (136-145)
[2024-07-18 15:42] LABS: Carbon Dioxide 7 mmol/L (22-29)
[2024-07-18 15:43] LABS: Potassium, Radom Urine 9 mmol/L; Urine Creatinine 318 mg/dL (39-259); Urine Random Chloride 26 mmol/L; Urine Random Sodium 30 mmol/L
[2024-07-18 15:43] LABS: Osmolality Calculated 334 mOsm/kg (285-295)
[2024-07-18 15:44] LABS: Urine Protein Random 52 mg/dL
[2024-07-18 15:44] LABS: Blood Urea Nitrogen 133 mg/dL (6-20)
[2024-07-18 16:19] LABS: C.Diff PCR (Lab) NEGATIVE (Negative)
[2024-07-18 21:12] LABS: Creatinine Clr Calc Pharmacy 12.5511; Glucose 112 mg/dL (65-115); Sodium 144 mmol/L (136-145)
[2024-07-18 21:17] LABS: Anion Gap 25.4 (5-19); Calcium 7.1 mg/dL (8.5-10.5); Chloride 113 mmol/L (98-107); Glomerular Filtration Rate 6.6 mL/min (90-130); Potassium 3.4 mmol/L (3.5-5.1)
[2024-07-18 21:20] LABS: Osmolality Calculated 340 mOsm/kg (285-295)
[2024-07-18 21:21] LABS: Blood Urea Nitrogen 127 mg/dL (6-20); Carbon Dioxide 9 mmol/L (22-29)
[2024-07-19] VITALS (47 sets, daily range): BP systolic 81–130; BP diastolic 52–90; PULSE 78–105; RESP 12–24; TEMP 36.4–37.1; O2SAT 93–100
[2024-07-19] MEDS: heparin 5,000 unit/mL INJ 1 mL 5000 UNIT SUBCUT (00:38)
[2024-07-19] MEDS: piperacillin-tazobactam 3.375 GM in sodium chloride 0.9% (plus) 50 ML IV ×3 (00:38→23:51)
[2024-07-19 03:48] LABS: Basophils % 0.6 %; Eosinophils # 0.1 10^3/uL (0.0-0.8); Eosinophils % 1.2 %; Hematocrit 29.8 % (37-53); Lymphocytes % 21.1 %; Mean Corpuscular HGB Conc 33.6 g/dL (30-55); Mean Corpuscular Hemoglobin 33.3 pg (27-33); Mean Corpuscular Volume 99.3 fl (82-101); Mean Platelet Volume 10.9 fL (7.4-10.4); Monocytes # 0.3 10^3/uL (0.2-0.9); Monocytes % 6.8 %; Neutrophils # 3.41 10^3/uL (1.8-7.7); Neutrophils % 69.9 %; Nucleated Red Blood Cells % 0 %; Platelet Count 91 10^3/cmm (157-399); Red Cell Distribution Width 13.8 % (12.1-15.1); White Blood Count 4.88 10^3/uL (3.29-11.43)
[2024-07-19 04:05] LABS: Alanine Aminotransferase 6 U/L (0-41); Albumin Level 3.4 g/dL (3.5-5.2); Alkaline Phosphatase 35 U/L (40-130); Anion Gap 24.1 (5-19); Aspartate Amino Transferase 8 U/L (0-40); Calcium 6.9 mg/dL (8.5-10.5); Carbon Dioxide 11 mmol/L (22-29); Chloride 113 mmol/L (98-107); Creatinine Clr Calc Pharmacy 13.8551; Globulin 2.3 g/dL (1.3-4.6); Glomerular Filtration Rate 7.4 mL/min (90-130); Glucose 115 mg/dL (65-115); Potassium 3.1 mmol/L (3.5-5.1); Sodium 145 mmol/L (136-145); Total Protein 5.7 g/dL (6.6-8.7)
[2024-07-19 04:32] LABS: Osmolality Calculated 340 mOsm/kg (285-295)
[2024-07-19 04:33] LABS: Blood Urea Nitrogen 123 mg/dL (6-20); Magnesium 0.7 mg/dL (1.7-2.3)
[2024-07-19] MEDS: magnesium sulfate premix 2 GM/50 ML PIGGYBACK IV (04:49)
--- NOTE | 2024-07-19 07:37 | P.PN_ITS ---
Subjective 2 Subjective: no new c/o Medications: Reviewed: Yes Vitals/I&O/Wt Last Vital Signs Temp 98.8 F 07/19/24 04:24 Pulse 87 07/19/24 06:00 Resp 12 07/19/24 06:00 BP 89/54 07/19/24 06:00 Pulse Ox 96 07/19/24 06:00 O2 Del Method Room Air 07/18/24 14:30 07/18/24 07/19/24 07/19/24 22:59 06:59 14:59 Intake Total 1002.083 / 2283.100 1037.5 / 3320.600 Output Total 1750 / 1750 Balance 1002.083 / 2283.100 -712.5 / 1570.600 Weight last 48 hrs Weight 115.893 kg Weight 104.326 kg Physical Exam 2 Narrative: patient is awake alert no distress HEENT S1-S2 regular rate and rhythm. Lungs clear per report No pedal edema Urinary Catheter Management: Ch: Cath Placed During This Visit: yes Reason for Continuing Indwelling Catheter: Accurate Measurement of Urinary Output in Critically Ill Patients Urinary Catheter Date of Insertion: 07/18/24 Urinary Catheter Time of Insertion: 11:17 Data 07/19/24 11:20 07/19/24 03:30 A&P Assessment and plan (1) Acute renal failure: 1. Acute on chronic kidney disease:Has solitary kidney, Baseline creatinine seems to be in the mid 1 range about a month ago now has severe JOSESITO with severe metabolic acidosis-etiology likely prerenal in the setting of poor intake and possibly developed ATN -Currently on bicarbonate drip, improving acidosis and UOP picked up -No hydronephrosis on US -Monitor labs and urine output closely -Avoid nephrotoxins and IV contrast studies -Patient currently on room air 2. High anion gap metabolic acidosis: Due to diarrhea and JOSESITO, on bicarbonate drip, monitor repeat labs 3. History of hypertension holding meds due to borderline low blood pressures 4. History of GI bleed, 5. Recent streptococcal pharyngitis Attestations 2 Medical Necessity Statement*: per satnam Coding Level of Care Code Acute Code for g Fwd Diagnoses Acute renal failure N17.9
[2024-07-19 08:53] LABS: LAB Peripheral Smear Sent for Review
[2024-07-19] MEDS: pantoprazole 40 mg SDV IVP (09:09)
[2024-07-19 11:31] LABS: Hematocrit 28.6 % (37-53)
[2024-07-19] MEDS: sucralfate 1 gm/10 mL Oral Liq UDC PO (11:40)
[2024-07-19 11:51] LABS: Magnesium 1.2 mg/dL (1.7-2.3)
--- NOTE | 2024-07-19 13:53 | P.PN_ITS ---
Subjective 2 Subjective: Today he is feeling slightly better. Had some blood-tinged secretions on blowing his nose. Vitals/I&O/Wt Last Vital Signs Temp 97.5 F L 07/19/24 12:30 Pulse 88 07/19/24 13:30 Resp 17 07/19/24 13:30 BP 100/62 07/19/24 13:30 Pulse Ox 95 07/19/24 13:30 O2 Del Method Room Air 07/19/24 12:30 07/18/24 07/19/24 07/19/24 22:59 06:59 14:59 Intake Total 1002.083 / 2283.100 1037.5 / 3320.600 1300 / 1300 Output Total 1750 / 1750 900 / 900 Balance 1002.083 / 2283.100 -712.5 / 1570.600 400 / 400 Weight last 48 hrs Weight 115.893 kg Weight 104.326 kg Physical Exam 2 Narrative: Awake and alert. Sitting up in chair. Const: COMMON NORMALS: patient oriented x3 and alert GENERAL APPEARANCE: c ooperative ORIENTATION/CONSCIOUSNESS: Yes awake HENMT: COMMON NORMALS: oropharynx normal Neck/C-Spine: COMMON NORMALS: no JVD Resp: COMMON NORMALS: normal respiratory effort and clear to auscultation bilaterally AUSCULTATION: clear to auscultation bilaterally Cardio: COMMON NORMALS: no JVD, regular rhythm, S1 normal heart sound present, S2 normal heart sound present and No murmurs present (Cardio) RHYTHM: regular rhythm HEART SOUNDS: S1 normal heart sound present and S2 normal heart sound present GI: COMMON NORMALS: Normal to inspection, nondistended, normoactive bowel sounds present, Soft to palpation and non-tender PALPATION: Yes Soft to palpation Extremity: COMMON NORMALS: no joint enlargement and no pedal edema Neuro: COMMON NORMALS: patient oriented x3 and moves all extremities S ENSORIUM/ORIENTATION: Yes alert Skin: COMMON NORMALS: no rashes or lesions noted GENERAL SKIN EXAM: no rashes or lesions noted Urinary Catheter Management: Ch: Cath Placed During This Visit: yes Reason for Continuing Indwelling Catheter: Accurate Measurement of Urinary Output in Critically Ill Patients Urinary Catheter Date of Insertion: 07/18/24 Urinary Catheter Time of Insertion: 11:17 Data 07/19/24 11:20 07/19/24 03:30 Micro: Microbiology 07/18/24 10:26 Urine Culture - Preliminary Urine,Clean Catch A&P Assessment and plan (1) Acute renal failure: Reviewed vitals, CBC, CMP, BUN reviewed noted 123, creatinine elevated noted down to 7.7. Potassium 3.1. Magnesium severely low this morning 0.7, recheck magnesium requested. Reviewed, 1.2. Additional 4 g magnesium requested. Recheck chemistry, magnesium tonight and in the morning. Reviewed nephrology note. Continue bicarb drip. Monitor labs. Possibly secondary to acidosis complicated by hypotension, blood pressure 8460, and have Levophed ready. Holding antihypertensives. Severe acute renal failure demonstrated by markedly elevated creatinine, pronounced metabolic acidosis, pronounced secondary compensatory respiratory alkalosis. Differential diagnosis is broad. This could include dehydration, hypotension with blood pressure medication, infection, poststreptococcal, HUS Continue IV fluid resuscitation in the form of a bicarbonate drip. Currently getting a bolus, and then will get 125 cc an hour of D5W with 100 mill equivalents of bicarbonate per liter BP is improving significantly, continue to monitor Nephrology consultation Ch in place, has produced clear yellow urine, continue to monitor volume Hold all blood pressure medications, including KAVEH inhibitors Patient denies any history of anti-inflammatory use Avoid renal toxic medication Secondary to past history of positive strep we will do a throat culture, and initiate Zosyn currently. Zosyn is also being used secondary to GI abnormalities. Repeat BMP in 3 hours (2) Acidosis: IV sodium-bicarb administered (3) Hematochezia: Hold heparin. SCDs. Been having stools with visible blood Significant pain with bowel movements Dilaudid PRN for pain Consider colonoscopy, after patient is stabilized Zosyn IV Stool culture pending, C. difficile toxin reviewed, negative (4) Hypotension: Improved with IV fluids Fairly profound on arrival Hold all antihypertensives. 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 Noted decrease across all cell lines including WBC and platelets. Possibly with IV hydration, renal failure. With decreasing platelets, risk of uremia, epistaxis, holding heparin for now. Recheck hemoglobin. Recheck CBC in the morning. Plan Moderate thrombocytopenia: Platelets down to 91 this morning. Partially delusional with decrease in all cell lines. Requested peripheral smear. Full Code DVT prophylaxis: Unfractionated heparin Protonix for GI prophylaxis Attestations 2 Medical Necessity Statement*: Continue admission for assessment management of acute renal failure, acidosis, worsening anemia. Coding Level of Care Code Critical Care >/= 30 minutes Critical care time (in minutes): 35 The high probability of a clinically significant, sudden or life threatening deterioration, as referenced in this documentation, required my full and direct attention, intervention and personal management. The critical care time shown is in addition to time spent performing any reported separately billable procedures and includes the following: [x] Data and vital sign review and interpretation [x ] Patient assessment, examination and intervention [x] Medication orders and management [x] Patient/Family updates as able [x] Care Coordination and Documentation. Diagnoses Acute renal failure N17.9 Acidosis E87.20 Hematochezia K92.1 Hypotension I95.9 History of streptococcal pharyngitis Z87.09 Anemia D64.9
[2024-07-19] MEDS: magnesium sulfate premix 4 GM/100 ML PREMIX IV (14:37)
--- NOTE | 2024-07-19 18:08 | PC.NURSE ---
SHift SUmmary: uneventful shift. Up to a chair for most of the day. Nephorology rounded, no new orders, will recheck labs in the AM. Total urine output: 2150mL
[2024-07-19 23:11] LABS: Basophils % 0.7 %; Eosinophils # 0.1 10^3/uL (0.0-0.8); Eosinophils % 1.1 %; Hematocrit 29.9 % (37-53); Lymphocytes # 1.2 10^3/uL (0.8-4.8); Mean Corpuscular HGB Conc 34.4 g/dL (30-55); Mean Corpuscular Hemoglobin 32.7 pg (27-33); Mean Corpuscular Volume 94.9 fl (82-101); Mean Platelet Volume 11.6 fL (7.4-10.4); Monocytes # 0.3 10^3/uL (0.2-0.9); Monocytes % 7.4 %; Neutrophils # 2.88 10^3/uL (1.8-7.7); Neutrophils % 64.6 %; Nucleated Red Blood Cells % 0 %; Platelet Count 92 10^3/cmm (157-399); Red Blood Count 3.15 10^6/uL (3.85-5.65); Red Cell Distribution Width 13.7 % (12.1-15.1); White Blood Count 4.46 10^3/uL (3.29-11.43)
[2024-07-19 23:24] LABS: Anion Gap 19.9 (5-19); Calcium 7.4 mg/dL (8.5-10.5); Carbon Dioxide 19 mmol/L (22-29); Chloride 110 mmol/L (98-107); Creatinine Clr Calc Pharmacy 28.0687; Glomerular Filtration Rate 15.8 mL/min (90-130); Glucose 122 mg/dL (65-115); Magnesium 1.9 mg/dL (1.7-2.3); Osmolality Calculated 332 mOsm/kg (285-295); Sodium 146 mmol/L (136-145)
[2024-07-19 23:33] LABS: Blood Urea Nitrogen 92 mg/dL (6-20); Potassium 2.9 mmol/L (3.5-5.1)
[2024-07-19] MEDS: potassium chloride ER 20 mEq Tablet 40 MEQ PO (23:50)
[2024-07-20] VITALS (20 sets, daily range): BP systolic 100–137; BP diastolic 59–90; PULSE 67–111; RESP 12–20; TEMP 36.4–37; O2SAT 92–97
[2024-07-20] MEDS: ondansetron 2 mg/ML SDV 2 mL 4 MG IVP ×3 (03:52→18:23)
[2024-07-20 05:16] LABS: Basophils % 0.4 %; Eosinophils # 0.1 10^3/uL (0.0-0.8); Eosinophils % 1.1 %; Hematocrit 29.1 % (37-53); Lymphocytes # 1.1 10^3/uL (0.8-4.8); Lymphocytes % 23.6 %; Mean Corpuscular HGB Conc 35.1 g/dL (30-55); Mean Corpuscular Hemoglobin 32.7 pg (27-33); Mean Corpuscular Volume 93.3 fl (82-101); Mean Platelet Volume 11.6 fL (7.4-10.4); Monocytes # 0.3 10^3/uL (0.2-0.9); Monocytes % 6.2 %; Neutrophils # 3.07 10^3/uL (1.8-7.7); Neutrophils % 68.3 %; Nucleated Red Blood Cells % 0 %; Platelet Count 99 10^3/cmm (157-399); Red Blood Count 3.12 10^6/uL (3.85-5.65); Red Cell Distribution Width 13.6 % (12.1-15.1)
[2024-07-20 05:48] LABS: Alanine Aminotransferase 6 U/L (0-41); Albumin Level 3.7 g/dL (3.5-5.2); Alkaline Phosphatase 34 U/L (40-130); Anion Gap 20.6 (5-19); Aspartate Amino Transferase 10 U/L (0-40); Calcium 7.7 mg/dL (8.5-10.5); Carbon Dioxide 19 mmol/L (22-29); Chloride 112 mmol/L (98-107); Globulin 2.5 g/dL (1.3-4.6); Glomerular Filtration Rate 16.7 mL/min (90-130); Glucose 143 mg/dL (65-115); Magnesium 1.6 mg/dL (1.7-2.3); Osmolality Calculated 337 mOsm/kg (285-295); Sodium 149 mmol/L (136-145); Total Bilirubin 1.1 mg/dL (0.15-1.2); Total Protein 6.2 g/dL (6.6-8.7)
[2024-07-20 05:54] LABS: Blood Urea Nitrogen 86 mg/dL (6-20); Potassium 2.6 mmol/L (3.5-5.1)
[2024-07-20] MEDS: lidocaine 1% 5 ML in potassium chloride premix 100 ML 26.25 ML IV ×2 (06:29→11:05)
[2024-07-20] MEDS: pantoprazole 40 mg SDV IVP (08:10)
[2024-07-20] MEDS: magnesium sulfate premix 4 GM/100 ML PREMIX IV (10:09)
[2024-07-20] MEDS: D5-NS 0.45% + KCL 20 mEq 20 MEQ/1,000 ML BAG 100 MEQ IV ×2 (11:03→21:04)
[2024-07-20] MEDS: piperacillin-tazobactam 3.375 GM in sodium chloride 0.9% (plus) 50 ML IV (12:16)
--- NOTE | 2024-07-20 13:25 | P.PN_ITS ---
Subjective 2 Subjective: He feels he continues to improve. No further epistaxis. Had a dark bowel movement last night with dark red color on toilet paper. Vitals/I&O/Wt Last Vital Signs Temp 97.5 F L 07/20/24 12:00 Pulse 83 07/20/24 13:00 Resp 14 07/20/24 13:00 BP 137/79 07/20/24 13:00 Pulse Ox 95 07/20/24 12:00 O2 Del Method Room Air 07/20/24 12:00 07/19/24 07/20/24 07/20/24 22:59 06:59 14:59 Intake Total 1150 / 2450 1050 / 3500 1102.917 / 1102.917 Output Total 1250 / 2150 2350 / 4500 850 / 850 Balance -100 / 300 -1300 / -1000 252.917 / 252.917 Weight last 48 hrs Weight 115.893 kg Physical Exam 2 Narrative: Awake and alert. Sitting up in chair. Const: COMMON NORMALS: patient oriented x3 and alert GENERAL APPEARANCE: c ooperative ORIENTATION/CONSCIOUSNESS: Yes awake HENMT: COMMON NORMALS: oropharynx normal Neck/C-Spine: COMMON NORMALS: no JVD Resp: COMMON NORMALS: normal respiratory effort and clear to auscultation bilaterally AUSCULTATION: clear to auscultation bilaterally Cardio: COMMON NORMALS: no JVD, regular rhythm, S1 normal heart sound present, S2 normal heart sound present and No murmurs present (Cardio) RHYTHM: regular rhythm HEART SOUNDS: S1 normal heart sound present and S2 normal heart sound present GI: COMMON NORMALS: Normal to inspection, nondistended, normoactive bowel sounds present, Soft to palpation and non-tender PALPATION: Yes Soft to palpation Extremity: COMMON NORMALS: no joint enlargement and no pedal edema Neuro: COMMON NORMALS: patient oriented x3 and moves all extremities S ENSORIUM/ORIENTATION: Yes alert Skin: COMMON NORMALS: no rashes or lesions noted GENERAL SKIN EXAM: no rashes or lesions noted Urinary Catheter Management: Ch: Cath Placed During This Visit: yes Reason for Continuing Indwelling Catheter: Accurate Measurement of Urinary Output in Critically Ill Patients Urinary Catheter Date of Insertion: 07/18/24 Urinary Catheter Time of Insertion: 11:17 Data 07/20/24 04:43 07/20/24 04:43 Micro: Microbiology 07/18/24 10:26 Urine Culture - Final Urine,Clean Catch 07/18/24 14:25 Throat Culture - Preliminary Throat A&P Assessment and plan (1) Acute renal failure: Reviewed vitals, intake and output, CBC, CMP, magnesium, nephrology note. He is producing urine. Maintaining blood pressure. Anemia so far stated around 10.2, platelets moderately low at 99, he did have a dark bowel movement last night. Likely platelet dysfunction with some degree of uremia although this has been improving. No further epistaxis. Severe recurrent hypokalemia this morning, received replacement, magnesium still low 1.6, giving additional 4 g. Resume home potassium. Monitor on telemetry with risk of life-threatening arrhythmia. Recheck chemistry is requested 4 PM, will recheck magnesium as well. Check iron studies. Continue to monitor intake and output. Monitor for polyuric phase of JOSESITO recovery. Will stop Levophed. Noted hypernatremia, hyperchloremia, bicarb is discontinued, he is started on D5 half-normal with potassium. Monitor for risk of fluid overload. Transfer out of ICU, continue care on medical surgical floor. Discussed with slunk skin curer. Possibly secondary to acidosis complicated by hypotension, blood pressure 8460, and have Levophed ready. Holding antihypertensives. Severe acute renal failure demonstrated by markedly elevated creatinine, pronounced metabolic acidosis, pronounced secondary compensatory respiratory alkalosis. Differential diagnosis is broad. This could include dehydration, hypotension with blood pressure medication, infection, poststreptococcal, HUS Secondary to past history of positive strep we will do a throat culture, and initiate Zosyn currently. Zosyn is also being used secondary to GI abnormalities. (2) Acidosis: IV sodium-bicarb administered (3) Hematochezia: So far with some improvement, dark bowel movement last night with red on tissue paper. No further epistaxis. Renal dysfunction/some degree of uremia is improving gradually. Continue PPI. He remembers having a colonoscopy a while ago, never had an EGD. Discussed with him consideration of further endoscopic evaluation for source of possible chronic slow GI bleed which may have been exacerbated by uremia and platelet dysfunction. Discontinue IV Dilaudid. Discontinue norepinephrine. Hold heparin. SCDs. Been having stools with visible blood Significant pain with bowel movements Dilaudid PRN for pain Consider colonoscopy, after patient is stabilized Zosyn IV Stool culture pending, C. difficile toxin reviewed, negative (4) Hypotension: Improved with IV fluids Fairly profound on arrival Hold all antihypertensives. (5) History of streptococcal pharyngitis: Concern for PSGN Positive for 2+ blood, 11-20 RBC/hpf, no RBC casts (6) Anemia: Check iron studies, ferritin, TIBC. Noted worsening anemia, hemoglobin down to 10 this morning, 9.7 on recheck this afternoon. Noted decrease across all cell lines including WBC and platelets. Possibly with IV hydration, renal failure. With decreasing platelets, risk of uremia, epistaxis, holding heparin for now. Recheck hemoglobin. Recheck CBC in the morning. Plan Moderate thrombocytopenia: Platelets down to 99 this morning. Partially delusional with decrease in all cell lines. Requested peripheral smear. Repeat blood counts. Full Code DVT prophylaxis: Unfractionated heparin Protonix for GI prophylaxis Attestations 2 Medical Necessity Statement*: Continue admission for assessment management of acute renal failure, acidosis, acute anemia, GI bleeding. Diagnoses Acute renal failure N17.9 Acidosis E87.20 Hematochezia K92.1 Hypotension I95.9 History of streptococcal pharyngitis Z87.09 Anemia D64.9
[2024-07-20 16:26] LABS: Anion Gap 17.2 (5-19); Blood Urea Nitrogen 68 mg/dL (6-20); Calcium 7.8 mg/dL (8.5-10.5); Carbon Dioxide 21 mmol/L (22-29); Chloride 113 mmol/L (98-107); Creatinine Clr Calc Pharmacy 40.0982; Glomerular Filtration Rate 23.8 mL/min (90-130); Glucose 142 mg/dL (65-115); Osmolality Calculated 328 mOsm/kg (285-295); Potassium 3.2 mmol/L (3.5-5.1); Sodium 148 mmol/L (136-145)
[2024-07-20 16:46] LABS: Ferritin 588 ng/mL (30-400); Iron 97 ug/dL (59-158); Percent Saturation 45.5 % (20-50); Total Iron Binding Capacity 213 mcg/dl; Unsaturated Iron Binding 116 ug/dL (112-347)
--- NOTE | 2024-07-20 16:54 | P.PN_ITS ---
Subjective 2 Subjective: no new c/o Medications: Reviewed: Yes Vitals/I&O/Wt Last Vital Signs Temp 98.2 F 07/20/24 16:00 Pulse 84 07/20/24 16:00 Resp 13 07/20/24 16:00 BP 120/75 07/20/24 16:00 Pulse Ox 96 07/20/24 16:00 O2 Del Method Room Air 07/20/24 16:00 07/20/24 07/20/24 07/20/24 06:59 14:59 22:59 Intake Total 1050 / 3500 1102.917 / 1102.917 255 / 1357.917 Output Total 2350 / 4500 850 / 850 700 / 1550 Balance -1300 / -1000 252.917 / 252.917 -445 / -192.083 Weight last 48 hrs Weight 115.893 kg Physical Exam 2 Narrative: patient is awake alert no distress HEENT S1-S2 regular rate and rhythm. Lungs clear per report No pedal edema Urinary Catheter Management: Ch: Cath Placed During This Visit: yes Reason for Continuing Indwelling Catheter: Accurate Measurement of Urinary Output in Critically Ill Patients Urinary Catheter Date of Insertion: 07/18/24 Urinary Catheter Time of Insertion: 11:17 Data 07/20/24 04:43 07/20/24 15:53 Micro: Microbiology 07/18/24 14:25 Throat Culture - Final Throat 07/18/24 10:26 Urine Culture - Final Urine,Clean Catch A&P Assessment and plan (1) Acute renal failure: 1. Acute on chronic kidney disease:Has solitary kidney, Baseline creatinine seems to be in the mid 1 range about a month ago now has severe JOSESITO with severe metabolic acidosis-etiology likely prerenal in the setting of poor intake and possibly developed ATN -Currently on bicarbonate drip, switch to 1/2 NS -improving acidosis and UOP picked up -No hydronephrosis on US -Monitor labs and urine output closely -Avoid nephrotoxins and IV contrast studies -Patient currently on room air 2. High anion gap metabolic acidosis: Due to diarrhea and JOSESITO, on bicarbonate drip, monitor repeat labs 3. History of hypertension holding meds due to borderline low blood pressures 4. History of GI bleed, 5. Recent streptococcal pharyngitis 6. Hypernatremia , 7. Hypokalemia Attestations 2 Medical Necessity Statement*: per medicine Coding Level of Care Code Acute Code for Chg Fwd Diagnoses Acute renal failure N17.9
[2024-07-20] MEDS: potassium chloride ER 20 mEq Tablet 40 MEQ PO (18:18)
[2024-07-21] VITALS (10 sets, daily range): BP systolic 124–158; BP diastolic 70–95; PULSE 69–95; RESP 16–18; TEMP 36.4–37.1; O2SAT 96–98
[2024-07-21] MEDS: piperacillin-tazobactam 3.375 GM in sodium chloride 0.9% (plus) 50 ML IV (00:25)
[2024-07-21] MEDS: D5-NS 0.45% + KCL 20 mEq 20 MEQ/1,000 ML BAG 100 MEQ IV (06:03)
[2024-07-21 06:45] LABS: Basophils % 0.4 %; Eosinophils # 0.1 10^3/uL (0.0-0.8); Eosinophils % 1.9 %; Hematocrit 28.5 % (37-53); Lymphocytes # 1.3 10^3/uL (0.8-4.8); Lymphocytes % 28.3 %; Mean Corpuscular HGB Conc 33.3 g/dL (30-55); Mean Corpuscular Hemoglobin 32.9 pg (27-33); Mean Corpuscular Volume 98.6 fl (82-101); Monocytes # 0.3 10^3/uL (0.2-0.9); Monocytes % 6.3 %; Neutrophils # 2.97 10^3/uL (1.8-7.7); Neutrophils % 62.9 %; Nucleated Red Blood Cells % 0 %; Platelet Count 84 10^3/cmm (157-399); Red Blood Count 2.89 10^6/uL (3.85-5.65); Red Cell Distribution Width 13.4 % (12.1-15.1); White Blood Count 4.73 10^3/uL (3.29-11.43)
[2024-07-21 06:56] LABS: Alanine Aminotransferase 6 U/L (0-41); Albumin Level 3.4 g/dL (3.5-5.2); Alkaline Phosphatase 32 U/L (40-130); Anion Gap 16.2 (5-19); Aspartate Amino Transferase 11 U/L (0-40); Blood Urea Nitrogen 54 mg/dL (6-20); Calcium 8.2 mg/dL (8.5-10.5); Carbon Dioxide 22 mmol/L (22-29); Chloride 114 mmol/L (98-107); Globulin 2.5 g/dL (1.3-4.6); Glomerular Filtration Rate 27.2 mL/min (90-130); Glucose 128 mg/dL (65-115); Osmolality Calculated 324 mOsm/kg (285-295); Potassium 3.2 mmol/L (3.5-5.1); Sodium 149 mmol/L (136-145); Total Protein 5.9 g/dL (6.6-8.7)
[2024-07-21 06:58] LABS: Creatinine Clr Calc Pharmacy 44.8765
[2024-07-21] MEDS: pantoprazole 40 mg SDV IVP (09:12)
[2024-07-21] MEDS: potassium chloride ER 20 mEq Tablet PO (09:12)
--- NOTE | 2024-07-21 10:33 | P.PN_ITS ---
Subjective 2 Subjective: The patient was seen and examined. The patient feeling better. Patient has no chest pain. Mild nausea with no vomiting no headaches no diarrhea. Decreased shortness of breath. Urinating well. Medications: Reviewed: Yes Medication Review Details: Current Medications Acetaminophen (Acetaminophen 325 Mg Tablet) 650 mg PO Q6H PRN PRN Reason: MILD PAIN Heparin Sodium (Porcine) (Heparin 5,000 Unit/Ml Inj 1 Ml) 5,000 unit SUBCUT Q12H ROXANN Last Admin: 07/19/24 00:38 Dose: 5,000 unit Potassium Chloride/Dextrose/Sod Cl (D5-Ns 0.45% + Kcl 20 Meq) 20 meq in 1,000 mls @ 100 mls/hr IV .Q10H ROXANN Last Admin: 07/21/24 06:03 Dose: 100 mls/hr Non-Formulary Medication (Mecobalamin (Vitamin B12)) 2,500 mcg PO DAILY [facility] Ondansetron HCl (Ondansetron 2 Mg/Ml Sdv 2 Ml) 4 mg IVP Q6H PRN PRN Reason: NAUSEA AND VOMITING Last Admin: 07/20/24 18:23 Dose: 4 mg Pantoprazole Sodium (Pantoprazole 40 Mg Sdv) 40 mg IVP DAILY [facility] Last Admin: 07/21/24 09:12 Dose: 40 mg Potassium Chloride (Potassium Chloride Er 20 Meq Tablet) 20 meq PO DAILY ROXANN Last Admin: 07/21/24 09:12 Dose: 20 meq Vitals/I&O/Wt Last Vital Signs Temp 98.8 F 07/21/24 07:48 Pulse 75 07/21/24 07:48 Resp 16 07/21/24 07:48 BP 150/78 07/21/24 07:48 Pulse Ox 97 07/21/24 07:48 O2 Del Method Room Air 07/21/24 07:48 07/20/24 07/21/24 07/21/24 22:59 06:59 14:59 Intake Total 1495 / 2597.917 1308.333 / 3906.250 120 / 120 Output Total 1500 / 2350 700 / 3050 Balance -5 / 247.917 608.333 / 856.250 120 / 120 Weight last 48 hrs Weight 115.72 kg Weight 116.029 kg Physical Exam 2 Narrative: Obese man in bed sitting up vital signs stable HEENT normocephalic atraumatic. Neck is supple No JVP Lungs clear to auscultation bilaterally Heart regular no rubs or gallops. Abdomen soft nontender nondistended positive bowel sound. Extremities no significant edema. Neuro awake alert oriented x 3 Urinary Catheter Management: Ch: Cath Placed During This Visit: yes Reason for Continuing Indwelling Catheter: Accurate Measurement of Urinary Output in Critically Ill Patients Urinary Catheter Date of Insertion: 07/18/24 Urinary Catheter Time of Insertion: 11:17 Data 07/21/24 06:21 07/21/24 06:21 Micro: Microbiology 07/18/24 14:25 Throat Culture - Final Throat 07/18/24 10:26 Urine Culture - Final Urine,Clean Catch A&P Assessment and plan (1) Acute renal failure: Renal counseling with hematochezia, question of strep pharyngitis, hypotension. Patient has history of hypertension recent COVID-pneumonia solitary kidney. Patient presented with acute kidney injury and severe metabolic acidosis are improving. Currently the patient has hypokalemia and hyponatremia. Will change fluids to hypotonic fluid and replace potassium. monitor where cr plateuas Patient also has anemia thrombocytopenia being worked up as per medicine. meds reviewed seen and examined using audiovisual equipment and nurse aided in the exam. This was a telehealth visit. Patient consented to telehealth. Qualifiers: Acute renal failure type: unspecified Qualified Code(s): N17.9 - Acute kidney failure, unspecified Plan ivf. encourage water Attestations 2 Medical Necessity Statement*: Improving acute kidney injury metabolic acidosis electrolyte abnormalities Time Spent in Patient Care: 16 - 35 minutes (>than 50% of time sp ent in counselling and/or direct pt care on unit) . Coding Level of Care Code Acute Code for Chg Fwd Diagnoses Acute renal failure, unspecified acute renal failure type N17.9 Acute renal failure type: unspecified
[2024-07-21] MEDS: sodium chloride 0.45% 1,000 ML 125 ML IV ×2 (10:58→19:03)
--- NOTE | 2024-07-21 17:50 | P.PN_ITS ---
Subjective 2 Subjective: Denies any additional developments today. Had a bowel movement last night which was green. Vitals/I&O/Wt Last Vital Signs Temp 98.6 F 07/21/24 15:15 Pulse 81 07/21/24 15:50 Resp 17 07/21/24 15:15 BP 142/84 07/21/24 15:15 Pulse Ox 96 07/21/24 15:15 O2 Del Method Room Air 07/21/24 15:15 07/21/24 07/21/24 07/21/24 06:59 14:59 22:59 Intake Total 1308.333 / 3906.250 741.667 / 741.667 Output Total 700 / 3050 900 / 900 650 / 1550 Balance 608.333 / 856.250 -158.333 / -158.333 -650 / -808.333 Weight last 48 hrs Weight 115.72 kg Weight 116.029 kg Physical Exam 2 Narrative: Awake and alert. Const: COMMON NORMALS: patient oriented x3 and alert GENERAL APPEARANCE: c ooperative ORIENTATION/CONSCIOUSNESS: Yes awake HENMT: COMMON NORMALS: oropharynx normal Neck/C-Spine: COMMON NORMALS: no JVD Resp: COMMON NORMALS: normal respiratory effort and clear to auscultation bilaterally AUSCULTATION: clear to auscultation bilaterally Cardio: COMMON NORMALS: no JVD, regular rhythm, S1 normal heart sound present, S2 normal heart sound present and No murmurs present (Cardio) RHYTHM: regular rhythm HEART SOUNDS: S1 normal heart sound present and S2 normal heart sound present GI: COMMON NORMALS: Normal to inspection, nondistended, normoactive bowel sounds present, Soft to palpation and non-tender PALPATION: Yes Soft to palpation Extremity: COMMON NORMALS: no joint enlargement and no pedal edema Neuro: COMMON NORMALS: patient oriented x3 and moves all extremities S ENSORIUM/ORIENTATION: Yes alert Skin: COMMON NORMALS: no rashes or lesions noted GENERAL SKIN EXAM: no rashes or lesions noted Urinary Catheter Management: Ch: Cath Placed During This Visit: yes Reason for Continuing Indwelling Catheter: Accurate Measurement of Urinary Output in Critically Ill Patients Urinary Catheter Date of Insertion: 07/18/24 Urinary Catheter Time of Insertion: 11:17 Data 07/21/24 06:21 07/21/24 06:21 Micro: Microbiology 07/18/24 14:25 Throat Culture - Final Throat A&P Assessment and plan (1) Acute renal failure: Reviewed vitals, CBC, CMP, intake and output. He is producing urine. Monitor for polyuric stage of recovery from UTI. Reviewed nephrology note. Fluid has been changed to normal saline 150 mL/h. Monitor intake and output. Monitor for risk of fluid overload. Recheck chemistry, monitor for risk of worsening hyponatremia. Potassium supplement requested. Recheck level. Recheck magnesium. Reviewed throat culture, IV normal kendall. Zosyn discontinued. Severe acute renal failure demonstrated by markedly elevated creatinine, pronounced metabolic acidosis, pronounced secondary compensatory respiratory alkalosis. Differential diagnosis is broad. This could include dehydration, hypotension with blood pressure medication, infection, poststreptococcal, HUS Secondary to past history of positive strep we will do a throat culture, and initiate Zosyn currently. Zosyn is also being used secondary to GI abnormalities. Qualifiers: Acute renal failure type: unspecified Qualified Code(s): N17.9 - Acute kidney failure, unspecified (2) Anemia: Reviewed iron studies, ferritin, TIBC. Reviewed hemoglobin, platelets. Noted thrombocytopenia worsened to 84. Discontinue Zosyn. Repeat blood counts. Noted hemoglobin down to 9.5. Status post GI bleed, additionally some dilutional changes has been receiving IV fluids, is producing urine. Recheck blood counts. Did have a bowel movement yesterday which was green. As per discussion with him, consideration may be given to inpatient endoscopy especially in case of further signs of GI bleeding, further decline of hemoglobin, as opposed to outpatient arrangements in case there are no further signs of bleeding. Epistaxis so far resolved. Holding heparin for now. (3) Hematochezia: As above. Stool culture reviewed, still pending, C. difficile toxin reviewed, negative (4) Acidosis: IV sodium-bicarb has been discontinued (5) Hypotension: Improved with IV fluids Fairly profound on arrival Hold all antihypertensives. 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 Plan Moderate thrombocytopenia: Follow-up peripheral smear. Further worsening of platelets today to 84,000. Zosyn discontinued. Recheck blood counts. Full Code DVT prophylaxis: SCD Protonix for GI prophylaxis Attestations 2 Medical Necessity Statement*: Continue admission for assessment management of acute renal failure, acute anemia, GI bleeding. and High MDM includes described risk of complication, morbidity or mortality of management as documented Diagnoses Acute renal failure, unspecified acute renal failure type N17.9 Acute renal failure type: unspecified Anemia D64.9 Hematochezia K92.1 Acidosis E87.20 Hypotension I95.9 History of streptococcal pharyngitis Z87.09
--- NOTE | 2024-07-21 22:00 | PC.NURSE ---
Dr. Kidd notified that patient's heart rate goes up into the 140s-160s sinus tach every time he gets up to the bathroom. The day shift nurse stated in report that he did this today and last night. Patient states that he feels fine when this happens. Unable to obtain EKG at the time that it occurred, as patient was sitting on the toilet in the bathroom. When patient got back to bed, his heart rate quickly came back down to normal.
[2024-07-22] VITALS (7 sets, daily range): BP systolic 137–157; BP diastolic 56–90; PULSE 53–96; RESP 15–19; TEMP 36.8–36.9; O2SAT 90–98
[2024-07-22] MEDS: sodium chloride 0.45% 1,000 ML 125 ML IV (02:02)
[2024-07-22 03:14] LABS: Basophils % 0.4 %; Eosinophils # 0.1 10^3/uL (0.0-0.8); Eosinophils % 2.9 %; Hematocrit 28.3 % (37-53); Lymphocytes # 1.3 10^3/uL (0.8-4.8); Lymphocytes % 29.7 %; Mean Corpuscular HGB Conc 33.2 g/dL (30-55); Mean Corpuscular Hemoglobin 32.5 pg (27-33); Mean Corpuscular Volume 97.9 fl (82-101); Mean Platelet Volume 11.7 fL (7.4-10.4); Monocytes # 0.3 10^3/uL (0.2-0.9); Monocytes % 6.4 %; Neutrophils # 2.72 10^3/uL (1.8-7.7); Neutrophils % 60.4 %; Nucleated Red Blood Cells % 0 %; Platelet Count 70 10^3/cmm (157-399); Red Blood Count 2.89 10^6/uL (3.85-5.65); White Blood Count 4.51 10^3/uL (3.29-11.43)
[2024-07-22 03:37] LABS: Alanine Aminotransferase 7 U/L (0-41); Albumin Level 3.5 g/dL (3.5-5.2); Alkaline Phosphatase 34 U/L (40-130); Anion Gap 15.9 (5-19); Aspartate Amino Transferase 12 U/L (0-40); Blood Urea Nitrogen 30 mg/dL (6-20); Calcium 8.1 mg/dL (8.5-10.5); Carbon Dioxide 21 mmol/L (22-29); Chloride 109 mmol/L (98-107); Creatinine Clr Calc Pharmacy 59.0481; Globulin 1.9 g/dL (1.3-4.6); Glomerular Filtration Rate 37.3 mL/min (90-130); Glucose 110 mg/dL (65-115); Osmolality Calculated 303 mOsm/kg (285-295); Phosphorus 2.5 mg/dL (2.5-4.5); Sodium 143 mmol/L (136-145); Total Bilirubin 1.1 mg/dL (0.15-1.2); Total Protein 5.4 g/dL (6.6-8.7)
[2024-07-22 03:45] LABS: Potassium 2.9 mmol/L (3.5-5.1)
[2024-07-22 03:54] LABS: Magnesium 1.2 mg/dL (1.7-2.3)
[2024-07-22] MEDS: potassium chloride ER 20 mEq Tablet 40 MEQ PO ×2 (04:29→16:58)
[2024-07-22] MEDS: potassium chloride ER 20 mEq Tablet PO (08:09)
[2024-07-22] MEDS: pantoprazole 40 mg SDV IVP (08:09)
[2024-07-22] MEDS: magnesium sulfate premix 1 GM/100 ML PIGGYBACK IV (10:49)
--- NOTE | 2024-07-22 11:15 | PM.PN ---
Subjective Subjective: no new complaints Medications: Reviewed: Yes Vitals/I&O/Wt Last Vital Signs Temp 98.2 F 07/22/24 08:00 Pulse 76 07/22/24 08:00 Resp 19 H 07/22/24 08:00 BP 137/90 07/22/24 08:00 Pulse Ox 96 07/22/24 08:00 O2 Del Method Room Air 07/22/24 03:47 07/21/24 07/22/24 07/22/24 22:59 06:59 14:59 Intake Total 1480 / 2221.667 1352.917 / 3574.584 1000 / 1000 Output Total 1350 / 2250 700 / 2950 Balance 130 / -28.333 652.917 / 917.261 0611 / 1000 Weight last 48 hrs Weight 115.938 kg Weight 115.893 kg Weight 115.72 kg Weight 116.029 kg Physical Exam Narrative: patient is awake alert no distress HEENT S1-S2 regular rate and rhythm. Lungs clear per report No pedal edema Urinary Catheter Management: Ch: Cath Placed During This Visit: yes Reason for Continuing Indwelling Catheter: Accurate Measurement of Urinary Output in Critically Ill Patients Urinary Catheter Date of Insertion: 07/18/24 Urinary Catheter Time of Insertion: 11:17 Data 07/22/24 02:46 07/22/24 02:46 A&P Assessment and plan (1) Acute renal failure: 1. Acute on chronic kidney disease:Has solitary kidney, Baseline creatinine seems to be in the mid 1 range about a month ago now has severe JOSESITO with severe metabolic acidosis-etiology likely prerenal in the setting of poor intake and possibly developed ATN -improving acidosis and UOP picked up -No hydronephrosis on US -Monitor labs and urine output closely -Avoid nephrotoxins and IV contrast studies -Patient currently on room air 2. High anion gap metabolic acidosis: Due to diarrhea and JOSESITO, on bicarbonate drip, monitor repeat labs 3. History of hypertension holding meds due to borderline low blood pressures 4. History of GI bleed, 5. Recent streptococcal pharyngitis 6. Hypernatremia , improved 7. Hypokalemia . replete Qualifiers: Acute renal failure type: unspecified Qualified Code(s): N17.9 - Acute kidney failure, unspecified Plan ivf. encourage water Attestations Medical Necessity Statement*: per [facility] Coding Level of Care Code Acute Code for Chg Fwd Diagnoses Acute renal failure, unspecified acute renal failure type N17.9 Acute renal failure type: unspecified
--- NOTE | 2024-07-22 14:18 | ECG_ITS ---
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1970 Requested By: Selvin Bernal Order Number: [id number] Reading MD: MOJGAN SEGOVIA Measurements Intervals [place] Rate: 73 P: 54 VA: 142 QRS: 24 QRSD: 101 T: -10 QT: 378 QTc: 418 Interpretive Statements SINUS RHYTHM WITH FREQUENT SUPRAVENTRICULAR PREMATURE COMPLEXES NONSPECIFIC T-WAVE ABNORMALITY ABNORMAL RHYTHM ECG Compared to ECG 07/18/2024 09:42:07 Sinus tachycardia no longer present T-wave abnormality still present Electronically Signed On 07-22-2024 18:52:56 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
[2024-07-22 15:12] LABS: Anion Gap 12.3 (5-19); Blood Urea Nitrogen 26 mg/dL (6-20); Calcium 8.6 mg/dL (8.5-10.5); Carbon Dioxide 23 mmol/L (22-29); Chloride 112 mmol/L (98-107); Creatinine Clr Calc Pharmacy 66.0569; Glomerular Filtration Rate 42.4 mL/min (90-130); Glucose 105 mg/dL (65-115); Osmolality Calculated 303 mOsm/kg (285-295); Potassium 3.3 mmol/L (3.5-5.1); Sodium 144 mmol/L (136-145); Vitamin B12 197 pg/mL (232-1245)
--- NOTE | 2024-07-22 15:31 | P.PN_ITS ---
Subjective 2 Subjective: Hospital course, labs appreciated. Seen laying comfortably in bed. Stating he is feeling extremely weak. Denies any nausea, vomiting, headache. Denies any melena. Last bowel movement yesterday. Vitals/I&O/Wt Last Vital Signs Temp 98.3 F 07/22/24 12:00 Pulse 53 L 07/22/24 12:00 Resp 17 07/22/24 12:00 BP 145/76 07/22/24 12:00 Pulse Ox 90 07/22/24 12:00 O2 Del Method Room Air 07/22/24 12:00 07/22/24 07/22/24 07/22/24 06:59 14:59 22:59 Intake Total 1352.917 / 3574.584 1100 / 1100 Output Total 700 / 2950 950 / 950 Balance 652.917 / 624.584 150 / 150 Weight last 48 hrs Weight 115.938 kg Weight 115.893 kg Weight 115.72 kg Weight 116.029 kg Physical Exam 2 Narrative: Awake and alert. Const: COMMON NORMALS: patient oriented x3 and alert GENERAL APPEARANCE: c ooperative ORIENTATION/CONSCIOUSNESS: Yes awake HENMT: COMMON NORMALS: oropharynx normal Neck/C-Spine: COMMON NORMALS: no JVD Resp: COMMON NORMALS: normal respiratory effort and clear to auscultation bilaterally AUSCULTATION: clear to auscultation bilaterally Cardio: COMMON NORMALS: no JVD, regular rhythm, S1 normal heart sound present, S2 normal heart sound present and No murmurs present (Cardio) RHYTHM: regular rhythm HEART SOUNDS: S1 normal heart sound present and S2 normal heart sound present GI: COMMON NORMALS: Normal to inspection, nondistended, normoactive bowel sounds present, Soft to palpation and non-tender PALPATION: Yes Soft to palpation Extremity: COMMON NORMALS: no joint enlargement and no pedal edema Neuro: COMMON NORMALS: patient oriented x3 and moves all extremities S ENSORIUM/ORIENTATION: Yes alert Skin: COMMON NORMALS: no rashes or lesions noted GENERAL SKIN EXAM: no rashes or lesions noted Urinary Catheter Management: Ch: Cath Placed During This Visit: yes, but has since been removed by the nurse Reason for Continuing Indwelling Catheter: Decision to DC Catheter Urinary Catheter Date of Insertion: 07/18/24 Urinary Catheter Time of Insertion: 11:17 Date Urinary Catheter Removed: 07/22/24 Time Urinary Catheter Discontinued: 15:26 Data 07/22/24 02:46 07/22/24 14:00 Micro: Microbiology 07/18/24 12:59 E. coli Shiga-like Toxin (PCR) - Final Stool Campylobacter (PCR) - Final A&P Assessment and plan (1) Acute renal failure: Resolved. Presenting creatinine more than 11. Down to 1.7. Appreciate nephrology recommendations. Hold off on fluids. Encourage increase oral intake. Metabolic acidosis improved. Severe acute renal failure demonstrated by markedly elevated creatinine, pronounced metabolic acidosis, pronounced secondary compensatory respiratory alkalosis. Differential diagnosis is broad. This could include dehydration, hypotension with blood pressure medication, infection, poststreptococcal, HUS. Shiga toxin negative on admission. Qualifiers: Acute renal failure type: unspecified Qualified Code(s): N17.9 - Acute kidney failure, unspecified (2) Anemia: Most likely anemic on admission because of platelet dysfunction in setting of uremia. Reviewed iron studies, ferritin, TIBC. Check vitamin B12 and folate levels. Hemoglobin so far has been more than so stable. Patient denies any melena. Continue with Protonix daily. Patient will most likely to follow-up with surgical team as an outpatient for endoscopy. Target hemoglobin more than 7. Will transfuse accordingly. Monitor hemoglobin daily for now. (3) Hematochezia: As above. Stool culture reviewed. (4) Acidosis: Resolved. IV sodium-bicarb has been discontinued (5) Hypotension: Goal blood pressure less than 140/90 mmHg. Hypertensive at baseline. Blood pressures improving. Start on low-dose amlodipine 5 mg oral daily. Will titrate as for goal blood pressures. 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 Plan Moderate thrombocytopenia: Follow-up peripheral smear. Further worsening of platelets today to 84,000. Zosyn discontinued. Recheck blood counts. Full Code DVT prophylaxis: SCD Protonix for GI prophylaxis Physical therapy. Attestations 2 Medical Necessity Statement*: Requires further hospitalization for management of anemia, severe acute kidney injury with uremia with concerns for PSGN Diagnoses Acute renal failure, unspecified acute renal failure type N17.9 Acute renal failure type: unspecified Anemia D64.9 Hematochezia K92.1 Acidosis E87.20 Hypotension I95.9 History of streptococcal pharyngitis Z87.09
[2024-07-22] MEDS: cyanocobalamin 1,000 mcg/mL SDV 1000 MCG IM (16:58)
[2024-07-23] VITALS: BP 165/83; PULSE 100; RESP 18; TEMP 37; O2SAT 98
[2024-07-23 04:00] VITALS: BP 148/86; PULSE 77; RESP 17; TEMP 37; O2SAT 98
--- NOTE | 2024-07-23 05:04 | P.PN_ITS ---
Subjective 2 Subjective: no new c/o Medications: Reviewed: Yes Vitals/I&O/Wt Last Vital Signs Temp 98.6 F 07/23/24 04:00 Pulse 77 07/23/24 04:00 Resp 17 07/23/24 04:00 BP 148/86 07/23/24 04:00 Pulse Ox 98 07/23/24 04:00 O2 Del Method Room Air 07/23/24 04:00 07/22/24 07/22/24 07/23/24 14:59 22:59 06:59 Intake Total 1100 / 1100 950 / 2050 Output Total 950 / 950 Balance 150 / 150 950 / 1100 Weight last 48 hrs Weight 115.938 kg Weight 115.893 kg Weight 115.72 kg Weight 116.029 kg Physical Exam 2 Narrative: patient is awake alert no distress HEENT S1-S2 regular rate and rhythm. Lungs clear per report No pedal edema Urinary Catheter Management: Ch: Cath Placed During This Visit: yes, but has since been removed by the nurse Reason for Continuing Indwelling Catheter: Decision to DC Catheter Urinary Catheter Date of Insertion: 07/18/24 Urinary Catheter Time of Insertion: 11:17 Date Urinary Catheter Removed: 07/22/24 Time Urinary Catheter Discontinued: 15:26 Data 07/22/24 02:46 07/22/24 14:00 Micro: Microbiology 07/18/24 12:59 E. coli Shiga-like Toxin (PCR) - Final Stool Campylobacter (PCR) - Final A&P Assessment and plan (1) Acute renal failure: 1. Acute on chronic kidney disease:Has solitary kidney, Baseline creatinine seems to be in the mid 1 range about a month ago now has severe JOSESITO with severe metabolic acidosis-etiology likely prerenal in the setting of poor intake and possibly developed ATN -improving acidosis and UOP picked up -No hydronephrosis on US -Monitor labs and urine output closely -Avoid nephrotoxins and IV contrast studies -Patient currently on room air 2. High anion gap metabolic acidosis: Due to diarrhea and JOSESITO, on bicarbonate drip, monitor repeat labs 3. History of hypertension holding meds due to borderline low blood pressures 4. History of GI bleed, 5. Recent streptococcal pharyngitis 6. Hypernatremia , improved 7. Hypokalemia . replete Qualifiers: Acute renal failure type: unspecified Qualified Code(s): N17.9 - Acute kidney failure, unspecified Plan ivf. encourage water Attestations 2 Medical Necessity Statement*: per medicine Coding Level of Care Code Acute Code for Chg Fwd Diagnoses Acute renal failure, unspecified acute renal failure type N17.9 Acute renal failure type: unspecified
[2024-07-23 06:17] LABS: Basophils % 0.8 %; Eosinophils # 0.2 10^3/uL (0.0-0.8); Hematocrit 28.9 % (37-53); Lymphocytes # 1.7 10^3/uL (0.8-4.8); Lymphocytes % 34.5 %; Mean Corpuscular HGB Conc 33.9 g/dL (30-55); Mean Corpuscular Hemoglobin 32.6 pg (27-33); Mean Platelet Volume 11.9 fL (7.4-10.4); Monocytes # 0.4 10^3/uL (0.2-0.9); Monocytes % 7.5 %; Neutrophils # 2.67 10^3/uL (1.8-7.7); Nucleated Red Blood Cells % 0 %; Platelet Count 86 10^3/cmm (157-399); Red Blood Count 3.01 10^6/uL (3.85-5.65); Red Cell Distribution Width 12.9 % (12.1-15.1); White Blood Count 5.04 10^3/uL (3.29-11.43)
[2024-07-23 06:47] LABS: Alanine Aminotransferase 11 U/L (0-41); Albumin Level 3.5 g/dL (3.5-5.2); Alkaline Phosphatase 36 U/L (40-130); Blood Urea Nitrogen 18 mg/dL (6-20); Calcium 8.5 mg/dL (8.5-10.5); Carbon Dioxide 23 mmol/L (22-29); Chloride 112 mmol/L (98-107); Chol HDL Ratio 3.07 mg/dL (1.0-5.00); Cholesterol 89 mg/dL (0-200); Creatinine Clr Calc Pharmacy 70.1854; Globulin 2.4 g/dL (1.3-4.6); Glomerular Filtration Rate 45.4 mL/min (90-130); Glucose 96 mg/dL (65-115); HDL Cholesterol 29 mg/dL (60-100); LDL Cholesterol Calculated 25 mg/dL (50-129); Magnesium 1.2 mg/dL (1.7-2.3); Osmolality Calculated 302 mOsm/kg (285-295); Phosphorus 1.6 mg/dL (2.5-4.5); Sodium 145 mmol/L (136-145); Total Bilirubin 1.2 mg/dL (0.15-1.2); Total Protein 5.9 g/dL (6.6-8.7); Triglycerides 174 mg/dL (0-150); VLDL Cholestrol Calculation 35 mg/dL (0-30)
[2024-07-23 06:51] LABS: Anion Gap 13.3 (5-19); Aspartate Amino Transferase 19 U/L (0-40); Potassium 3.3 mmol/L (3.5-5.1)
[2024-07-23 07:45] VITALS: BP 149/77; PULSE 77; RESP 18; TEMP 36.7; O2SAT 97
[2024-07-23] MEDS: cyanocobalamin 1,000 mcg/mL SDV 1000 MCG IM (08:21)
[2024-07-23] MEDS: potassium chloride ER 20 mEq Tablet PO (08:21)
[2024-07-23] MEDS: pantoprazole 40 mg SDV IVP (08:21)
[2024-07-23] MEDS: amlodipine 5 mg Tablet PO (08:21)
[2024-07-23] MEDS: metoprolol tartrate 25 mg Tablet PO (11:52)
[2024-07-23] MEDS: magnesium sulfate premix 1 GM/100 ML PIGGYBACK IV (11:52)
[2024-07-23] MEDS: potassium phosphate (mEq K) 40 MEQ in sodium chloride 0.9% (100 ml) 100 ML 27.25 MEQ IV (11:53)
--- NOTE | 2024-07-23 11:57 | PM.DCS ---
Discharge Providers Date of Admission: 07/18/24 11:52 Date of Discharge: July 23, 2024 Attending Provider at Admission: Jim Guzmán MD Attending Provider at Discharge: Selvin Bernal MD Consults: Telemetry nephrology Primary Care Provider: Bisi Flynn MD Diagnoses at Discharge Discharge Diagnosis (1) Acute renal failure: Status: Acute Qualifiers: Acute renal failure type: unspecified Qualified Code(s): N17.9 - Acute kidney failure, unspecified Reason for Visit Reason for Visit: blood in urine and stools Brief History: History as per HPI: Jazmine William is a 53 y.o. male with painful bloody stools and persistent fatigue. The fatigue has been going on for several weeks but the painful bloody stools he noticed more recently. These painful stools have made him increasingly hesitant to eat to avoid the pain of bowel movements. He has dealt with diarrhea since childhood and recalls undergoing surgery during childhood when they removed a portion of his intestine. He reports a recent bout of COVID that he believes has since resolved. He learned in 2017 that he only has one kidney. Denies any recent travel. Hospital Course Hospital Course Patient was admitted to the hospital further evaluation and management of acute renal failure with severe metabolic acidosis with concerns for prerenal etiology developing into ATN. He was started on bicarb drip. During hospitalization he was also found to have anemia with concerns for episode of hematochezia. His antihypertensives were withheld. Gradually with IV hydration his renal function started improving without requiring dialysis. His hemoglobin remained stable. Is believed patient possibly had transient GI bleed in setting of platelet dysfunction from uremia. Gradually his antihypertensives were restarted and currently his blood pressures are stable on oral amlodipine and metoprolol. He did have episode of atrial tachycardia and he was off metoprolol though patient remained asymptomatic. He has been discharged in hemodynamically stable condition advised to follow-up with his PCP within next 1 week for repeat CBC, CMP. He is to follow-up with a blood pressure charting for next 1 week for further adjustment of antihypertensive. He should also follow-up with surgical team as an outpatient within next 1 to 2 weeks for a possible EGD and colonoscopy. He is to hold off from taking his home dose of lisinopril for now. Physical Exam Narrative: Awake and alert. Const: COMMON NORMALS: patient oriented x3 and alert GENERAL APPEARANCE: cooperative ORIENTATION/CONSCIOUSNESS: Yes awake HENMT: COMMON NORMALS: oropharynx normal Neck/C-Spine: COMMON NORMALS: no JVD Resp: COMMON NORMALS: normal respiratory effort and clear to auscultation bilaterally AUSCULTATION: clear to auscultation bilaterally Cardio: COMMON NORMALS: no JVD, regular rhythm, S1 normal heart sound present, S2 normal heart sound present and No murmurs present (Cardio) RHYTHM: regular rhythm HEART SOUNDS: S1 normal heart sound present and S2 normal heart sound present GI: COMMON NORMALS: Normal to inspection, nondistended, normoactive bowel sounds present, Soft to palpation and non-tender PALPATION: Yes Soft to palpation Extremity: COMMON NORMALS: no joint enlargement and no pedal edema Neuro: COMMON NORMALS: patient oriented x3 and moves all extremities SENSORIUM/ORIENTATION: Yes alert Skin: COMMON NORMALS: no rashes or lesions noted GENERAL SKIN EXAM: no rashes or lesions noted Urinary Catheter Management: Ch: Cath Placed During This Visit: yes, but has since been removed by the nurse Reason for Continuing Indwelling Catheter: Decision to DC Catheter Urinary Catheter Date of Insertion: 07/18/24 Urinary Catheter Time of Insertion: 11:17 Date Urinary Catheter Removed: 07/22/24 Time Urinary Catheter Discontinued: 15:26 Discharge Data Studies Completed and Pending Completed Studies During Hospitalization Category Date Time Status CT kidney stone [id number] Stat Cat Scan 07/18/24 09:21 Completed XR chest 1V portable [id number] Stat Exams 07/18/24 09:21 Completed Pending at discharge Category Date Time Status Complete Blood Count w/Auto AM LABS Lab 07/24/24 04:00 Ordered Comprehensive Metabolic Panel AM LABS Lab 07/24/24 04:00 Ordered MAG [Magnesium] AM LABS Lab 07/24/24 04:00 Ordered MAG [Magnesium] AM LABS Lab 07/25/24 04:00 Ordered Phosphorus AM LABS Lab 07/24/24 04:00 Ordered Stool Culture - Enteric [Salmonella / Shigella / Campy] Lab 07/18/24 12:59 Results Routine Radiology Impressions Abdomen/Pelvis CT 07/18/24 09:21 IMPRESSION: 1. Large laminated gallstone in the gallbladder measuring 3.1 cm gallbladder is contracted. No pericholecystic fluid. 2. Diffuse fatty wall deposition involving the sigmoid colon and rectum. Small serpiginous area of increased attenuation in the dorsal RIGHT lateral rectosigmoid suspicious for blood products. In addition there may be some calcification in this area. Recommend further evaluation with sigmoidoscopy to exclude underlying calcified or ulcerated mass. 3. Prior RIGHT nephrectomy. 4. Tiny nonobstructing LEFT calyceal tip calculi. No hydronephrosis in the LEFT kidney. Notified Nigel Lafleur MD at 07/18/2024 10:42 AM. Chest X-Ray 07/18/24 09:21 IMPRESSION: 1. No acute cardiopulmonary process. Laboratory Results WBC 5.04 10^3/uL (3.29-11.43) 07/23/24 05:34 Corrected WBC Cancelled 07/21/24 03:57 RBC 3.01 10^6/uL (3.85-5.65) L 07/23/24 05:34 Hgb 9.80 g/dL (11.27-16.99) L 07/23/24 05:34 Hct 28.9 % (37-53) L 07/23/24 05:34 MCV 96.0 fl (82-101) 07/23/24 05:34 MCH 32.6 pg (27-33) 07/23/24 05:34 MCHC 33.9 g/dL (30-55) 07/23/24 05:34 RDW 12.9 % (12.1-15.1) 07/23/24 05:34 Plt Count 86 10^3/cmm (157-399) L 07/23/24 05:34 MPV 11.9 fL (7.4-10.4) H 07/23/24 05:34 Gran % Cancelled 07/21/24 03:57 Neut % (Auto) 53.0 % 07/23/24 05:34 Lymph % (Auto) 34.5 % 07/23/24 05:34 [place] % (Auto) 7.5 % 07/23/24 05:34 Eos % (Auto) 4.0 % 07/23/24 05:34 Baso % (Auto) 0.8 % 07/23/24 05:34 Neut # (Auto) 2.67 10^3/uL (1.8-7.7) 07/23/24 05:34 Lymph # (Auto) 1.7 10^3/uL (0.8-4.8) 07/23/24 05:34 [place] # (Auto) 0.4 10^3/uL (0.2-0.9) 07/23/24 05:34 Eos # (Auto) 0.2 10^3/uL (0.0-0.8) 07/23/24 05:34 Baso # (Auto) 0.0 10^3/uL (0.0-0.1) 07/23/24 05:34 Absolute Gran (auto) Cancelled 07/21/24 03:57 Nucleated RBC % (auto) 0 % 07/23/24 05:34 Nucleated RBCs # 0.0 /100WBC 07/23/24 05:34 Peripher Smr Path Cons Sent for review 07/19/24 03:30 PT 15.10 SECONDS (12.1-14.9) H 07/18/24 09:26 INR 1.16 (0.8-1.2) 07/18/24 09:26 Specimen Type Arterial 07/18/24 10:41 Sample Site Radial, right 07/18/24 10:41 ABG pH 7.03 (7.35-7.45) L* 07/18/24 10:41 ABG pCO2 15.8 mmHg (35-45) L* 07/18/24 10:41 ABG pO2 123.0 mmHg (80.0-100.0) H 07/18/24 10:41 ABG PO2/FiO2 Ratio 585 07/18/24 10:41 ABG HCO3 4.2 mmol/L (22-26) L 07/18/24 10:41 ABG Base Excess -24.8 mmol/L (-2.0-2.0) L 07/18/24 10:41 Scooter Test Pos 07/18/24 10:41 Hematocrit 36.7 % (42-52) L 07/18/24 10:41 O2 Delivery Device Room air 07/18/24 10:41 FiO2 21.0 % 07/18/24 10:41 Critical Care Rn ID Mary 07/18/24 10:41 Blood Gas Notified Time 1110 07/18/24 10:41 Sodium 145 mmol/L (136-145) 07/23/24 05:34 Potassium 3.3 mmol/L (3.5-5.1) L 07/23/24 05:34 Chloride 112 mmol/L (98-107) H 07/23/24 05:34 Carbon Dioxide 23 mmol/L (22-29) 07/23/24 05:34 Anion Gap 13.3 (5-19) 07/23/24 05:34 BUN 18 mg/dL (6-20) 07/23/24 05:34 Creatinine 1.6 mg/dL (0.7-1.2) H 07/23/24 05:34 GFR Calculation 45.4 mL/min (90-130) L 07/23/24 05:34 Glucose 96 mg/dL (65-115) 07/23/24 05:34 Calculated Osmolality 302 mOsm/kg (285-295) H 07/23/24 05:34 Lactic Acid 1.3 mmol/L (0.5-2.2) 07/18/24 09:26 Calcium 8.5 mg/dL (8.5-10.5) 07/23/24 05:34 Phosphorus 1.6 mg/dL (2.5-4.5) L 07/23/24 05:34 Magnesium 1.2 mg/dL (1.7-2.3) L 07/23/24 05:34 Iron 97 ug/dL (59-158) 07/20/24 15:53 TIBC 213 mcg/dl 07/20/24 15:53 % Saturation 45.5 % (20-50) 07/20/24 15:53 Unsat Iron Binding 116 ug/dL (112-347) 07/20/24 15:53 Ferritin 588 ng/mL (30-400) H 07/20/24 15:53 Total Bilirubin 1.2 mg/dL (0.15-1.2) 07/23/24 05:34 AST 19 U/L (0-40) 07/23/24 05:34 ALT 11 U/L (0-41) 07/23/24 05:34 Alkaline Phosphatase 36 U/L (40-130) L 07/23/24 05:34 Total Protein 5.9 g/dL (6.6-8.7) L 07/23/24 05:34 Albumin 3.5 g/dL (3.5-5.2) 07/23/24 05:34 Globulin 2.4 g/dL (1.3-4.6) 07/23/24 05:34 Triglycerides 174 mg/dL (0-150) H 07/23/24 05:34 Cholesterol 89 mg/dL (0-200) 07/23/24 05:34 LDL Cholesterol, Calc 25 mg/dL (50-129) L 07/23/24 05:34 Total VLDL Cholesterol 35 mg/dL (0-30) H 07/23/24 05:34 HDL Cholesterol 29 mg/dL (60-100) L 07/23/24 05:34 Cholesterol/HDL Ratio 3.07 mg/dL (1.0-5.00) 07/23/24 05:34 Lipase 384 U/L (13-60) H 07/18/24 09:26 Vitamin B12 197 pg/mL (232-1245) L 07/22/24 14:00 Folate 2.0 ng/mL (4.5-32.2) L 07/23/24 05:34 TSH 0.60 uIU/mL (0.27-4.20) 07/18/24 09: Urine Color Yellow (Yellow) 07/18/24 10:26 Urine Appearance Clear (CLEAR) 07/18/24 10:26 Urine pH 5.0 (5-7) 07/18/24 10: Ur Specific [place] 1.021 (1.005-1.030) 07/18/24 10: Urine Protein 2+ (Negative) A 07/18/24 10: Urine Glucose (UA) Negative (Normal) 07/18/24 10: Urine Ketones Trace (Negative) 07/18/24 10: Urine Blood 2+ (Negative) A 07/18/24 10: Urine Nitrate Negative (Negative) 07/18/24 10: Urine Bilirubin Negative (Negative) 07/18/24 10:26 Urine Urobilinogen 1.0 mg/dL (Negative) 07/18/24 10: Ur Leukocyte Esterase Negative (Negative) 07/18/24 10: Urine RBC 11-20 /hpf (0-2) H 07/18/24 10:26 Urine WBC 0-5 /hpf (0-5) 07/18/24 10:26 Ur Squamous Epith Cells 0-5 /hpf (0-5) 07/18/24 10: Amorphous Sediment Not Reportable 07/18/24 10:26 Urine Bacteria None seen /hpf (NONE) 07/18/24 10:26 Hyaline Casts 15.71 /lpf 07/18/24 10:26 U Random Total Protein 52 mg/dL 07/18/24 12:59 Ur Random Sodium 30 mmol/L 07/18/24 12:59 Ur Random Potassium 9 mmol/L 07/18/24 12:59 Ur Random Chloride 26 mmol/L 07/18/24 12:59 Urine Creatinine 318 mg/dL (39-259) H 07/18/24 12:59 C. difficile (PCR) Negative (Negative) 07/18/24 12:59 Blood Type A Positive 07/18/24 09:34 Rho(D) Type Rh positive 07/18/24 09:34 Antibody Screen Negative 07/18/24 09:34 Vitals Last Vital Signs Temp 98.0 F 07/23/24 07:45 Pulse 77 07/23/24 07:45 Resp 18 07/23/24 07:45 BP 149/77 07/23/24 07:45 Pulse Ox 97 07/23/24 07:45 O2 Del Method Room Air 07/23/24 07:45 Discharge Plan Discharge Patient Disposition: Home Condition: Stable Prescriptions: Continued mecobalamin (vitamin B12) 5,000 mcg tablet,disintegrating 2,500 mcg PO DAILY cholecalciferol (vitamin D3) 50 mcg (2,000 unit) capsule 50 mcg PO DAILY Qty: 90 3RF metoprolol tartrate 25 mg tablet 25 mg PO BID Qty: 180 0RF amlodipine 10 mg tablet 10 mg PO DAILY potassium chloride [Klor-Con M20] 20 mEq tablet,ER particles/crystals 20 meq PO DAILY Qty: 7 0RF Discontinued lisinopril 20 mg tablet 20 mg PO DAILY Qty: 90 0RF Discharge Orders: Discharge Order (Routine); Ordered 07/23/24 Ordered By: Selvin Bernal Referrals: Gary Cline MD [Physician] - 4-7 days (We have notified your physician's clinic of the need for a follow-up appointment to be scheduled. If you have not heard from them within the next 2 business days, please call them directly. ) Bisi Flynn MD [Primary Care Provider] - 08/09/24 1:15 pm Discharge Diet: Soft Mechanical Discharge Activity: Resume usual activity and Increase activity as tolerated Patient Instructions: Anemia (GEN), Opioid Safety Activity Restrictions/Additional Instructions: Please follow-up with a primary care provider within next 1 week. You should have a repeat CBC and CMP in 1 week. Your goal blood pressure is less than 140/90 mmHg. Continue taking your medications as before except lisinopril. Follow-up with surgical team within next 1 week to 10 days for a possible endoscopy as an outpatient. Discharge Attestations Time Spent in Discharge Care*: greater than 30 min Specific Discharge Activities: educating patient, discussing with pcp/other providers, discussing with field nurse case manager/social workers/dc planners, documenting/other paperwork and evaluating patient/reviewing data Status at Discharge: Cognitive status at discharge: cognitively intact, Behavioral status at discharge: cooperative, Functional status at discharge: uses cane/walker, Overall status at discharge: patient is progressing back to baseline Quality Metrics Clinical Quality Measures [ No reported AMI, CVA or VTE this stay] Coding Level of Care Code 98724 Total time (in minutes) for Discharge: 60 Diagnoses Acute renal failure, unspecified acute renal failure type N17.9 Acute renal failure type: unspecified
[2024-07-23 12:00] VITALS: BP 146/86; PULSE 86; RESP 19; TEMP 36.5; O2SAT 97
--- NOTE | 2024-07-23 13:46 | PC.NURSE ---
D/C pending completion of potassium administration. Expected to d/c around 1600.
[2024-07-23 15:51] VITALS: BP 155/88; PULSE 65; RESP 19; TEMP 36.7; O2SAT 98
[2024-07-23 16:09] VITALS: BP 150/82; PULSE 88; O2SAT 98
== END 2024-07-23 16:10 | disposition home or self-care (01) | DRG 683 ==
LOC: ER 11:37 → ICU 11:53 → MEDSURG 07-20 16:50
PROVIDERS: Hospitalist; Internal Medicine; Internal Medicine Nephrology; Admitting Provider Internal Medicine; Emergency Provider Emergency Medicine; PCP Family Medicine; Visit Provider Student in an Organized Health Care Education/Training Program
DX: N17.0 Acute kidney failure with tubular necrosis (principal); E87.0 Hyperosmolality and hypernatremia; E87.20 Acidosis, unspecified; K92.1 Melena; Z90.49 Acquired absence of other specified parts of digestive tract; Z86.16 Personal history of COVID-19; Z90.5 Acquired absence of kidney; N18.9 Chronic kidney disease, unspecified; I12.9 Hypertensive chronic kidney disease with stage 1 through stage 4 chronic kidney disease, or unspecified chronic kidney disease; Z87.442 Personal history of urinary calculi; Z82.49 Family history of ischemic heart disease and other diseases of the circulatory system; Z87.891 Personal history of nicotine dependence; I95.9 Hypotension, unspecified; D69.6 Thrombocytopenia, unspecified; K52.9 Noninfective gastroenteritis and colitis, unspecified; E86.0 Dehydration; E87.6 Hypokalemia; D63.1 Anemia in chronic kidney disease
CPT/HCPCS: 36415; 36600; 51702; 71045; 74176; 80048; 80053; 80061; 80503; 81001; 82436; 82570; 82607; 82728; 82746; 82803; 83540; 83550; 83605; 83690; 83735; 84100; 84133; 84156; 84300; 84443; 85014; 85018; 85025; 85610; 86850; 86900; 87045; 87070; 87086; 87427; 87449; 87493; 93005; 96372; 96374; 96375; 96376; 97116; 97161; 99285; J0696; J1644; J2405; J2470; J2543; J3420; J3475; J3480; J7030; J7070; Q3014

== ENCOUNTER → 2024-08-09 13:55 | Outpatient (BNVA) | payer OTHER, SELFPAY | PROVIDERS: PCP Family Medicine; Visit Provider Family Medicine | DX: I10 Essential (primary) hypertension (principal); N18.9 Chronic kidney disease, unspecified; E87.6 Hypokalemia; D64.9 Anemia, unspecified; K92.1 Melena; Q60.0 Renal agenesis, unilateral; K80.20 Calculus of gallbladder without cholecystitis without obstruction | CPT/HCPCS: 80048; 85025 ==

== ENCOUNTER 2024-09-12 07:48 | Day surgery (SDC) | payer OTHER, SELFPAY ==
[2024-09-12 08:07] VITALS: BP 162/121; PULSE 106; RESP 18; TEMP 36.3; O2SAT 98; BMI 29.8
--- NOTE | 2024-09-12 08:09 | ANES.PREANE2 ---
Pre-Anesthetic Assessment Height/Weight: Height 1.83 m Preop Diagnosis: screening Operation Date: 09/12/24 09:00 Proposed Procedures p EGD 24625, 89733, G0105, K21.9, K62.5(Not Applicable) - Gary Cline MD s Colonoscopy(Not Applicable) - Gary Cline MD Familial anesthetic complications: none Was Beta Sybil taken within 24 hours: Yes Was Clonidine taken within 24 hours: N/A Social No alcohol and No tobacco Exam alert, oriented x 3, clear to auscultation bilaterally and regular rate & rhythm Airway Submandibular: within normal limits Cervical ROM: within normal limits Mallampati: Class II Dentition: full History/ROS No significant history except as noted and No significant complaints Pulmonary None reported CV/HEM Hypertension Chronic Renal Failure Born with one kidney. Discovered in 2017. Hepatic None reported GI None reported Metabolic None reported Musc/skel None reported Neuropsych None reported Anesthetic Plan ASA status: 3 Anesthesia: MAC Risk of > 500 ml blood loss (7ml/kg in children): No Other Pertinent Information Kidney disease, HTN Medications/Allergies Home Medications Medication Instructions Recorded Confirmed Last Taken Type mecobalamin (vitamin B12) 5,000 2,500 mcg PO DAILY 03/09/21 09/10/24 09/11/24 15:00 History mcg disintegrating tablet cholecalciferol (vitamin D3) 50 50 mcg PO DAILY #90 caps 05/24/24 09/10/24 09/11/24 15:00 Rx mcg (2,000 unit) capsule metoprolol tartrate 25 mg tablet 25 mg PO BID #180 tabs 06/25/24 09/10/24 09/11/24 15:00 Rx amlodipine 10 mg tablet 10 mg PO DAILY 07/18/24 09/10/24 09/12/24 06:30 History potassium chloride 20 mEq 20 meq PO DAILY #7 tabs 07/23/24 09/10/24 09/11/24 15:00 Rx tablet,extended release(part/cryst) (Klor-Con M) ondansetron 8 mg disintegrating 8 mg PO Q8H PRN nausea and 08/13/24 09/10/24 09/11/24 15:00 Rx tablet vomiting #3 tabs Allergies Allergy/AdvReac Type Severity Reaction Status Date / Time No Known Allergies Allergy Verified 09/12/24 08:01 [facility] Anesthesia Medical History Neuritis of right ulnar nerve Chronic kidney disease (CKD) Hypokalemia Abnormal blood creatinine level Hypertension Asymptomatic cholelithiasis on CT 07/21 History of nephrolithiasis Solitary left kidney Atrophic almost no tissue on right Surgical History Hx of colonoscopy 3.31.17--normal History of ankle surgery Right History of intestinal surgery 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
[2024-09-12] MEDS: sodium chloride 0.9% 500 ML 15 ML IV (08:19)
--- NOTE | 2024-09-12 08:20 | W.PM.OPSUD ---
Surgery/Procedure H&P Update DATE OF PROCEDURE: September 12, 2024 DATE H&P PERFORMED: 08/13/24 H&P UPDATE INFORMATION: I have reviewed H&P completed within last 30 days, I have examined patient prior to procedure, No changes to prior documentation and H&P is in [facility] [place] on date indicated PREOP DIAGNOSIS: screening PLANNED PROCEDURE: Operation Date: 09/12/24 09:00 Proposed Procedures p EGD 55122, 26920, G0105, K21.9, K62.5(Not Applicable) - Gary Cline MD s Colonoscopy(Not Applicable) - Gary Cline MD
[2024-09-12 08:57] VITALS: BP 109/87; PULSE 85; RESP 20; TEMP 36.1; O2SAT 95
[2024-09-12 09:12] VITALS: BP 134/94; PULSE 87; RESP 20; O2SAT 96
--- NOTE | 2024-09-12 09:40 | ANE.PACU2 ---
Inpatient post-anesthesia follow up: Airway intact: Yes Vital signs: Temperature 97.0 F Pulse Rate 87 Respiratory Rate 20 Blood Pressure 134/94 Pulse Oximetry 96 Oxygen Delivery Me thod Room Air Oxygen Flow Rate Fraction of Inspir ed Oxygen Hydration adequate: Yes Nausea and vomiting: No Pain level: 1 Mental status: Baseline
== END 2024-09-12 09:40 | disposition home or self-care (01) ==
PROVIDERS: PCP Family Medicine; Visit Provider Surgery
PROC: 0DJ08ZZ Inspection of Upper Intestinal Tract, Via Natural or Artificial Opening Endoscopic (ICD-10-PCS; principal; 2024-09-12 09:00)
PROC: 0DJD8ZZ Inspection of Lower Intestinal Tract, Via Natural or Artificial Opening Endoscopic (ICD-10-PCS; CPT 45378; 2024-09-12 09:00)
DX: K62.5 Hemorrhage of anus and rectum (principal); K21.00 Gastro-esophageal reflux disease with esophagitis, without bleeding; K63.3 Ulcer of intestine; D12.5 Benign neoplasm of sigmoid colon; K29.70 Gastritis, unspecified, without bleeding; Z90.5 Acquired absence of kidney; N18.9 Chronic kidney disease, unspecified; Z87.891 Personal history of nicotine dependence
CPT/HCPCS: 43239; 45380; 45381; 45385; 88305; 88342; J2371; J2704; J7040

== ENCOUNTER → 2025-02-13 15:32 | Outpatient (BNVA) | payer OTHER, SELFPAY | PROVIDERS: PCP Family Medicine; Visit Provider Family Medicine | DX: I10 Essential (primary) hypertension (principal); E53.8 Deficiency of other specified B group vitamins; N18.9 Chronic kidney disease, unspecified; R07.89 Other chest pain; D64.9 Anemia, unspecified | CPT/HCPCS: 80053; 82607; 85025 ==